=== PATIENT | female | born 1965 | race Caucasian/White ===

== ENCOUNTER 2018-09-02 08:57 | Emergency (ER) | payer BC, SELFPAY ==
[2018-09-02 08:58] VITALS: BP 150/91; PULSE 67; RESP 16; TEMP 36.4; O2SAT 98; BMI 43.1
--- NOTE | 2018-09-02 09:07 | CT_ITS ---
STUDY: CTA OF THE BRAIN REASON FOR EXAM: Female, 52 years old. Dizziness. Syncopal episode. RADIATION DOSAGE (If Supplied By Facility): CTDIvol = ( 27.53 ) mGy, DLP = ( 1548.73 ) mGycm TECHNIQUE: CT angiography was performed with a multi-detector CT scanner. Data acquisition was obtained from the skull base through the vertex following intravenous administration of 100 ml of Isovue-370. MIP images were reconstructed from the axial data set. Post-processing of the angiographic images was performed, with multiplanar reformation and 3D reconstruction. Individualized dose optimization techniques were used for this CT. COMPARISON: None. FINDINGS: Normal bilateral petrous carotid arteries. Normal right cavernous carotid artery with a normal supraclinoid bifurcation. Normal left cavernous carotid artery with a normal supraclinoid bifurcation. Normal right A1 segments of the anterior cerebral artery. Normal left A1 segments of the anterior cerebral artery. Normal intact anterior communicating artery (ACOM). Normal bilateral A2 segments of the anterior cerebral arteries. Normal right M1 and M2 segments of the middle cerebral arteries, with a normal M1 bifurcation. Normal left M1 and M2 segments of the middle cerebral arteries, with a normal M1 bifurcation. Normal right posterior communicating artery (PCOM). Normal left posterior communicating artery (PCOM). Normal bilateral vertebral arteries. Normal basilar artery with a normal basilar bifurcation. The visualized bilateral superior cerebellar (SCA) arteries are normal. Normal bilateral P1, P2 and visualized P3 segments of the posterior cerebral arteries. There is no demonstrated aneurysm of the [place] of [place]. There is no demonstrated abnormality of the visualized brain. CT/CTA Head W/WO Contrast IMPRESSION: Normal [place] without a demonstrated aneurysm or hemodynamically significant stenosis. Electronically Signed: Kenyon Santacruz MD at 10:36 EST Tel [phone], Service support ,
--- NOTE | 2018-09-02 09:07 | CT_ITS ---
STUDY: CT BRAIN WITHOUT CONTRAST REASON FOR EXAM: Female, 52 years old. Dizziness and syncopal episode. RADIATION DOSAGE (If Supplied By Facility): CTDIvol = ( 27.53 ) mGy, DLP = ( 1548.73 ) mGycm TECHNIQUE: Transaxial CT imaging of the brain was performed without administration of intravenous contrast material. Individualized dose optimization techniques were used for this CT. COMPARISON: None. FINDINGS: Normal soft tissue structures. Normal calvarium. Normal size ventricles and extra-axial spaces for the patient's age. Normal white matter tracts of the cerebral hemispheres. Normal basal ganglia and thalami. Normal brainstem. Normal cerebellum. There is no intracranial hemorrhage. There are no findings of an acute ischemic infarction. Mucosal thickening of the right maxillary sinus. CT/Brain/Head without Contrast IMPRESSION: Normal unenhanced CT scan of the brain. Mucosal thickening of the right maxillary sinus. Electronically Signed: Kenyon Santacruz MD at 10:33 EST Tel [phone], Service support ,
--- NOTE | 2018-09-02 09:07 | EKG12_ITS ---
Test Reason : SYNCOPE Blood Pressure : / mmHG Vent. Rate : 065 BPM Atrial Rate : 065 BPM P-R Int : 178 ms QRS Dur : 094 ms QT Int : 410 ms P-R-T Axes : 043 016 052 degrees QTc Int : 426 ms Normal sinus rhythm Normal ECG Confirmed by KIKI GREGORY, RICO ([id number]), marketing editor BOBY SALGADO ([id number] on 09/03/2018 3:32:09 PM Referred By: BEBO Confirmed By:RICO SWANSON MD
--- NOTE | 2018-09-02 09:07 | CT_ITS ---
STUDY: CTA NECK WITH AND WITHOUT CONTRAST REASON FOR EXAM: Female, 52 years old. Dizziness. Syncopal episode. RADIATION DOSAGE (If Supplied By Facility): CTDIvol = ( 27.53 ) mGy, DLP = ( 1548.73 ) mGycm TECHNIQUE: CT angiography with multi-detector data acquisition was performed from the aortic arch to the skull base prior to and after intravenous administration of 100 ml of Isovue 370 contrast. MIP images were reconstructed from the axial data set. Post-processing of the angiographic images was performed, with multiplanar reformation and 3D reconstruction. Individualized dose optimization techniques were used for this CT. COMPARISON: None. FINDINGS: AORTIC ARCH: There is atherosclerotic calcific plaque formation of the aortic arch and great vessels arising from the aortic arch, without a hemodynamically significant stenosis. There is a normal origin of the brachiocephalic, left common carotid, and left subclavian arteries. RIGHT CAROTID ARTERIES: Normal right common carotid artery (CCA). Normal right common carotid bulb. Normal origin of the right internal carotid (ICA) artery without a hemodynamically significant stenosis. Normal visualized cervical portion of the right internal carotid artery. Normal origin of the right external carotid artery (ECA). LEFT CAROTID ARTERIES: Normal left common carotid artery (CCA). Normal left common carotid bulb. There is mild atherosclerotic plaque formation of the origin of the left internal carotid artery with less than 50% cross sectional diameter stenosis. Normal visualized cervical portion of the left internal carotid artery. Normal origin of the left external carotid artery (ECA). VERTEBRAL ARTERIES: Normal bilateral vertebral arteries. CT/CTA Neck W/WO Contrast IMPRESSION: Minimal calcific plaque is seen at the origin of the left internal carotid artery. Electronically Signed: Kenyon Santacruz MD at 10:38 EST Tel [phone], Service support ,
--- NOTE | 2018-09-02 09:12 | ED.DCSUM_ITS ---
- ER Visit Summary Date of Service: 09/02/18 Chief Complaint: Syncope, dizziness and vertigo History of Present Illness: The patient is a 52 F who presents with vertigo. Apparently she had no symptoms this morning, she drove to work, at work she had a syncopal episode, afterwards the vertigo started. She has no vision changes, she has no weakness in her arms or legs. She has no chest pain shortness of breath or neck pain. Symptoms are moderate to severe. Physical Examination: She appears in some distress Moist mucous membranes, no obvious facial deformity. TMs are clear No C-spine tenderness supple neck. Regular rate and rhythm without any obvious murmurs Clear lungs bilaterally speaking in full sentences without any obvious respiratory distress Abdomen soft and nontender no guarding or rebound Moves all extremities without any difficulty or pain. Skin does not show any obvious rashes or lesions, no trauma. Alert oriented ?3 with no gross focal deficit. I did not ambulate her on initial examination due to her distress. Emergency Department Course and Treatment: Unremarkable CT and CT angiogram. This is peripheral vertigo. She may have had a vasovagal syncope, her cardiac enzymes and EKG are also unremarkable. She was given Ativan and Zofran her symptoms are improved. This is likely labyrinthitis I will treat with Valium meclizine and Zofran for home. Disposition: Discharge stable condition Impression: Vertigo This note was generated with [employer] dictation software. It may contain incorrect words, spelling, and punctuation that were not noted in review of the chart prior to signing ED Disposition - Plan for ED Patient: Disposition: Home or Assisted Living Chief Complaint: Syncope Instructions: ED Vertigo Unspecified Prescriptions: Ondansetron [Zofran Odt] 4 mg PO Q8H PRN PRN #10 tab PRN Reason: Nausea Diazepam [Valium] 5 mg PO BID #10 tab Meclizine HCl 25 mg PO TID PRN #25 tab PRN Reason: Vertigo Referrals: Leana Mancini DO [Primary Care Provider] -
--- NOTE | 2018-09-02 09:15 | ED.RN ---
called pharmacy [facility] out of stock to send for pt.
[2018-09-02 09:25] LABS: Absolute Lymphocyte Count 2.53 X10^3/ul (0.83-4.51); Absolute Neutrophil Count 2.7 X10^3/uL (2.0-7.7); Basophil# 0.03 X10^3/uL; Basophil% 0.5 % (0-1); Eosinophil# 0.05 X10^3/uL; Eosinophils% 0.9 % (0-5); Hematocrit 40.2 % (37-47); Hemoglobin 12.8 g/dl (12.0-15.0); Lymphocyte # 2.53 X10^3/ul (4.0); Lymphocyte % 44.2 % (19-41); Mean Corp Hgb Conc 31.8 g/gl (32-36); Mean Corpuscular Hgb 27.7 pg (27.0-32.0); Mean Platelet Vol. 9.9 fl (6.2-12.0); Monocyte# 0.38 X10^3/uL; Monocyte% 6.6 % (0-10); Neutrophil # 2.74 X10^3/uL (2.7-7.7); Neutrophil % 47.8 % (47-70); Platelet Count 234 K/mm3 (150-450); RBC Distribution Width CV 13.3 % (11.6-14.6); RBC Distribution Width SD 42.4 fl (35.1-43.9); Red Blood Count 4.62 M/mm3 (4.2-5.4); White Blood Count 5.7 K/mm3 (4.4-11.0)
[2018-09-02 09:27] LABS: POSITIVE COUNT NO; POSITIVE DIFFERENTIAL NO; POSITIVE MORPHOLOGY NO
[2018-09-02] MEDS: Aspirin 81 MG TAB.CHEW 324 MG PO (09:30)
[2018-09-02] MEDS: Ondansetron 4 MG/2 ML Vial IV (09:30)
--- NOTE | 2018-09-02 09:30 | RAD_ITS ---
STUDY: X-RAY CHEST REASON FOR EXAM: Female, 52 years old. Chest pain. TECHNIQUE: Single AP portable view of the chest. COMPARISON: Comparison is made with prior study dated August 14, 2017. FINDINGS: EKG electrodes are seen. The lungs are clear and expanded. There is no demonstrated pleural abnormality. Normal size heart. Normal mediastinum and clyde. Normal visualized pulmonary arteries. There is atherosclerotic tortuosity of the aortic arch and descending thoracic aorta. There are diffuse degenerative changes of the visualized thoracic spine. Normal visualized ribs, clavicles, and shoulders. There is no demonstrated abnormality of the visualized soft tissue structures of the upper abdomen. RAD/Chest 1 View (Portable) IMPRESSION: No acute abnormality is seen. Electronically Signed: Kenyon Santacruz MD at 10:23 EST Tel [phone], Service support ,
[2018-09-02 09:36] LABS: Anion Gap 7 (5-15); BUN 19 mg/dL (7-18); BUN/Creat Ratio 24.8 RATIO (10-20); Calcium,Total 9.2 mg/dL (8.5-10.1); Chloride 107 mmol/L (98-107); Creatinine, Serum 0.77 mg/dL (0.55-1.02); EST Glomerular Filtration Rate 84 mL/min (>60); Est Glom Filt Rate - Afr Amer 101 mL/min (>60); Estimated Creatinine Clearance 66.83 ml/min; Glucose 116 mg/dL (74-106); Potassium 3.7 mmol/L (3.5-5.1); Sodium Level 139 mmol/L (136-145)
[2018-09-02] MEDS: LORazepam 2 MG/ML Syringe 0.5 MG IV (10:44)
[2018-09-02 11:06] VITALS: BP 141/73; PULSE 68; RESP 15; O2SAT 97
== END 2018-09-02 11:07 | disposition home or self-care (01) ==
PROVIDERS: Emergency Provider Emergency Medicine
DX: R42 Dizziness and giddiness (principal); E11.9 Type 2 diabetes mellitus without complications
CPT/HCPCS: 70450; 70496; 70498; 71045; 80048; 84484; 85025; 93005; 99285; Q9967; A4216; J2405

== ENCOUNTER 2020-03-08 10:43 | Emergency (ER) | payer BC, SELFPAY ==
[2020-03-08 10:45] VITALS: BP 156/78; PULSE 78; RESP 18; TEMP 36.8; O2SAT 98; BMI 42.0
--- NOTE | 2020-03-08 11:39 | ED.VIS.GEN ---
History of Present Illness Chief Complaint: Lower Extremity Injury Informant: Patient Narrative: Patient is a 54-year-old female the past medical history of anxiety/depression, fibromyalgia who presents to the emerge part for bilateral nontraumatic knee pain. This started 1 week ago but has been progressively getting worse. She is been taking Aleve at home for this which has not given her significant relief. She has had this pain before in the past. Ambulating and putting weight on them makes the symptoms worse. No known relieving factors. She has previously followed with pain management. She does have an appointment with them this coming . States that she has not been able to ambulate or go to work because of the pain. She denies any significant swelling. The pain is around her knees bilaterally it goes slightly up into her thighs and slightly down into her calves. No loss of sensation. No abdominal pain or back pain. No overlying skin changes. She denies any systemic symptoms including any fever/chills or nausea/vomiting. No chest pain or shortness of breath. Past Medical History - Allergies and Home Meds Allergies/Adverse Reactions: Allergies atorvastatin calcium [From Lipitor] Allergy (Unknown, Verified 03/08/20 10:49) Unknown Penicillins Allergy (Unknown, Verified 03/08/20 10:49) Hives propoxyphene napsylate [From Darvocet-N 100] Allergy (Unknown, Verified 03/08/20 10:49) Unknown rosuvastatin calcium [From Crestor] Allergy (Unknown, Verified 03/08/20 10:49) Unknown tetracycline Allergy (Unknown, Verified 03/08/20 10:49) Unknown acetaminophen [From Tylenol] Adverse Reaction (Unknown, Verified 03/08/20 10:49) Other Primary Care Physician: Leana Mancini DO [Primary Care Provider] - 2 Days Prior records reviewed: Yes Past Medical History: - - Fibromyalgia, anxiety/depression, osteoarthritis. Surgical History: - - Hysterectomy Smoking Status: Never smoker Alcohol: None Drugs: None - Family History Maternal Family History: Reports: - - Uncle from epilepsy Review of Systems All systems negative except as indicated General: Denies: Chills, Fever, Sweats Eyes: Denies: Visual changes - bilaterally, Diplopia ENT: Denies: Rhinorrhea Cardiovascular: Denies: Chest pain, Palpitations Respiratory: Denies: Dyspnea, Cough, Dyspnea on exertion Gastrointestinal: Denies: Abdominal pain, Nausea, Vomiting Genitourinary: Denies: Dysuria, Hematuria, Frequency Musculoskeletal: Reports: Extremity Pain. Denies: Neck pain, Back pain, Swelling Skin: Denies: Rash, Wounds Neurological: Denies: Headache, Weakness, Numbness Physical Exam Vital Signs/Narrative: Vital Signs Temp Pulse Resp BP Pulse Ox 03/08/20 10:45 98.2 F 78 18 156/78 H 98 Inital Vital Signs reviewed: Yes General: Well nourished, Well developed, No Acute Distress Head: Normocephalic, Atraumatic Eyes: Perrl, EOMI ENT: Moist mucous membranes, No rhinorrhea Neck: Supple, Nontender Cardiovascular: Regular rate, Regular rhythm, No murmurs Respiratory: No distress, CTA bilaterally, Chest nontender Abdomen: Soft, Nontender, Nondistended, Normal bowel sounds Back: Nontender, Normal Inspection Extremities: No edema, Tenderness - Tenderness to even very minimal palpation over her skin around the entire knees bilaterally. 2+ DP pulse. Neurovascular intact. Can move ankles well. Refusing to move knees. No painful anterior compression of hips bilaterally. No swelling of knees. Skin: Normal color, No rash Neurological: Alert, Oriented x3, Cranial nerves II-XII grossly intact, Normal Strength, Normal Sensation Diagnostic/Tx/Re-eval - Medical Decision Making Patient presents to the emerge department for acute on chronic knee pain. She has a history of arthritis and fibromyalgia. She believes that this is a flareup of both. Low concern for septic arthritis given the bilateral nature and no swelling present. She has an appointment pain management this coming . Discussed with her that I cannot write opioid pain medication prescription due to to the chronicity and pain management follow-up. We will give her a shot of Toradol here in the emergency department. Discussed imaging but this is nontraumatic and acute flare we both had a shared decision-making with not doing this at this time. After shot Toradol patient is feeling much better. She was able to ambulate around the emergency department. This time will discharge home in stable condition. She is to keep her pain management appointment in 2 days. She can continue to take her home pain medications. Warning signs and symptoms for which to return to the emerge department were reviewed with her. She understands and is agreeable with this plan. ED Disposition - Plan for ED Patient: Disposition: Home or Assisted Living Diagnosis: Bilateral knee pain Instructions: ED JOINT PAIN Referrals: Leana Mancini DO [Primary Care Provider] - 2 Days
[2020-03-08] MEDS: Ketorolac 30 MG/ML Syringe IM (12:19)
== END 2020-03-08 13:14 | disposition home or self-care (01) ==
PROVIDERS: Emergency Provider Emergency Medicine
DX: M25.561 Pain in right knee (principal); M25.562 Pain in left knee; G89.29 Other chronic pain; M79.7 Fibromyalgia; M19.90 Unspecified osteoarthritis, unspecified site
CPT/HCPCS: 96372; 99284

== ENCOUNTER → 2020-04-22 09:15 | Outpatient (CLI) | payer BC, SELFPAY ==
[2020-04-22 09:57] LABS: Hematocrit 41.7 % (37-47); Hemoglobin 13.3 g/dL (12.0-15.0); Mean Corp Hgb Conc 31.9 g/dL (32-36); Mean Corpuscular Hgb 28.2 pg (27.0-32.0); Mean Corpuscular Volume 88.5 fL (81-99); Mean Platelet Vol. 10.5 fl (6.2-12.0); Platelet Count 249 K/mm3 (150-450); RBC Distribution Width CV 13.4 % (11.6-14.6); RBC Distribution Width SD 43.8 fl (35.1-43.9); Red Blood Count 4.71 M/mm3 (4.2-5.4); White Blood Count 6.3 K/mm3 (4.4-11.0)
[2020-04-22 10:22] LABS: Anion Gap 3 (5-15); BUN 17 mg/dL (7-18); BUN/Creat Ratio 19.7 RATIO (10-20); Calcium,Total 9.2 mg/dL (8.5-10.1); Chloride 108 mmol/L (98-107); Creatinine, Serum 0.86 mg/dL (0.55-1.02); EST Glomerular Filtration Rate 73 mL/min (>60); Est Glom Filt Rate - Afr Amer 88 mL/min (>60); Glucose 110 mg/dL (74-106); Potassium 3.8 mmol/L (3.5-5.1); Sodium Level 142 mmol/L (136-145)
== END ==
LOC: LAB 09:31
PROVIDERS: Referring Provider Orthopaedic Surgery; Visit Provider Orthopaedic Surgery
DX: Z01.818 Encounter for other preprocedural examination (principal); Z01.810 Encounter for preprocedural cardiovascular examination
CPT/HCPCS: 36415; 80048; 85027

== ENCOUNTER → 2020-04-22 09:51 | Outpatient (CLI) | payer BC, SELFPAY | PROVIDERS: Referring Provider Orthopaedic Surgery; Visit Provider Orthopaedic Surgery | DX: Z20.828 Contact with and (suspected) exposure to other viral communicable diseases (principal) | CPT/HCPCS: 87635; 94799; U0003 ==

== ENCOUNTER → 2020-09-20 16:04 | Outpatient (CLI) | payer BC, SELFPAY ==
--- NOTE | 2020-09-20 16:05 | MRI_ITS ---
STUDY: MRI LEFT KNEE REASON FOR EXAM: Medial and subpatellar left knee pain, no specific injury. TECHNIQUE: Standardized fat and water weighted pulse sequences were obtained in all 3 orthogonal planes. COMPARISON: Radiographs 09/06/2020. FINDINGS: There is a complex tear of the posterior horn/body of the medial meniscus (proton-density coronal images 13-17; proton-density sagittal images 9-12) with a very small parameniscal cyst (T2 sagittal image 4). Normal hyaline cartilage of the medial femorotibial compartment. Normal medial femoral condyle and tibial plateau. Normal medial collateral ligamentous complex (MCL). Normal distal semimembranosus, gracilis and semitendinosus tendons. Normal lateral meniscus. Normal hyaline cartilage of the lateral femorotibial compartment. Normal lateral femoral condyle and tibial plateau. Normal proximal tibiofibular articulation. Normal lateral collateral (fibular) ligament. Normal popliteus tendon. Normal biceps femoris tendon. Normal anterior cruciate ligament (ACL). Normal posterior cruciate ligament (PCL). Normal congruent patellofemoral articulation. Normal hyaline cartilage of the patellofemoral compartment. Normal medial and lateral patellar retinaculum. Normal visualized quadriceps tendon. Normal patellar tendon. Normal Hoffa''s fat pad. There is a minimal volume of fluid in the knee joint. There is edema in the anterior subcutis adipose space. The otherwise visualized osseous structures are unremarkable. MRI/Lower Ext Joint Only (Routine) IMPRESSION: Medial meniscal tear. Electronically Signed: Alberto Mahoney MD at 7:21 EST Tel , Service support ,
== END ==
LOC: MRI 16:05
PROVIDERS: Referring Provider Orthopaedic Surgery; Visit Provider Orthopaedic Surgery
DX: M25.562 Pain in left knee (principal)
CPT/HCPCS: 73721

== ENCOUNTER 2020-10-12 05:58 | Day surgery (SDC) | payer BC, SELFPAY ==
[2020-10-12] VITALS (10 sets, daily range): BP systolic 121–146; BP diastolic 62–87; PULSE 65–90; RESP 16–18; TEMP 35.7–36.9; O2SAT 88–100; BMI 44.0
--- NOTE | 2020-10-12 06:00 | HP_ITS ---
I have re-examined the patient. There are no clinical changes since date of exam. Intake Intake Visit Reasons: LEFT KNEE Is patient in pain?: Yes Allergies atorvastatin calcium [From Lipitor] Allergy (Unknown, Verified 10/04/20 08:57) Unknown Penicillins Allergy (Unknown, Verified 10/04/20 08:57) Hives propoxyphene napsylate [From Darvocet-N 100] Allergy (Unknown, Verified 10/04/20 08:57) Unknown rosuvastatin calcium [From Crestor] Allergy (Unknown, Verified 10/04/20 08:57) Unknown tetracycline Allergy (Unknown, Verified 10/04/20 08:57) Unknown acetaminophen [From Tylenol] Adverse Reaction (Unknown, Verified 10/04/20 08:57) Other [facility] Medical History (Updated 09/06/20 @ 12:52 by Beulah Saha) Rheumatoid arthritis (Acute) HTN (hypertension) (Chronic) Surgical History (Updated 09/06/20 @ 12:52 by Beulah Saha) H/O arthroscopy of right knee (Acute) H/O total hysterectomy (Acute) History of loop recorder (Acute) Family History (Updated 09/06/20 @ 12:53 by Beulah Saha) Father Prostate cancer Hypertension Arthritis Depression Mother Depression Hypertension Arthritis Diabetes Social History (Updated 10/04/20 @ 09:[address] Ashleigh Blackwell, ) household members: spouse housing: house Smoking Status: Never smoker alcohol intake: current alcohol intake frequency: holidays/special occasions only what type of physical activity do you participate in: none do you feel safe at home: Yes HPI LEFT KNEE: Surgical H&P: Yes Details: Parts of this documentation were recorded by a scribe, this documentation accurately reflects the service provided and the decisions made by me, Dr. Ashleigh Blackwell DO 10/04/20 0857. JAJA SALGADO is a 54 year old F here today for a followup after her left knee MRI. She states that she continues to have medial knee pain. Patient denies any popping or clicking. She had an injection previously which was helpful for 1 week. She has increased pain with activities. Her MRI is here for review. ROS Tavia Reports joint pain, Denies numbness, Denies tingling Skin/Breast Reports system reviewed and no additional complaints, except as docu Neuro Yes system reviewed and no additional complaints, except as docu, No numbness, No tingling Ortho Exam General General: Yes no acute distress Neurologic: Yes alert, Yes oriented x3 Psychologic: Yes reasonable and appropriate Left Knee Skin/Wound: No ecchymosis, No erythema, No swelling Homans Sign: No Knee ROM: Yes ROM-Extension -20 to 0, No ROM-Flexion 0-140 Examination: Yes med jt line tenderness, No Lat jt line tenderness, Yes Karla's Test Stability: NML: Anterior Drawer, NML: Posterior Drawer, NML: Valgus 30, NML: Varus 30 Patella Grind: No KNEE: no joint effusion Assessment & Plan Problems 1. Acute medial meniscus tear of left knee, initial encounter S83.242A 2. Tear of medial meniscus of left knee, current, unspecified tear type, subsequent encounter S83.242D Plan Personally reviewed patients MRI of the left knee. Patient educate that she has a medial meniscus tear. Treatment options are do nothing or PT or bracing or steroid injection or left knee scope for meniscectomy. She wishes to proceed with left knee scope for medial meniscectomy, surgery as indicated. Reviewed the pre-operative plans with the patient. Risks and benefits of the procedure were fully explained, including but not limited to infection, neurovascular injury, continued pain, arthritis, stiffness, need for further surgery, re-injury, DVT, PE, general risks of anesthesia, and loss of limb or life. The patient understands all the risks and does wish to proceed with written consent. Follow up 2 weeks post op or sooner if pain, swelling, numbness or associated symptoms, or concerns develop. All questions answered. Patient in agreement of plan. Coding Level of Care Code Off vis,est,level 4 Diagnoses Acute medial meniscus tear of left knee, initial encounter S83.242A ??Encounter type: initial encounter Tear of medial meniscus of left knee, current, unspecified tear type, subsequent encounter S83.242D ??Encounter type: subsequent encounter ??Meniscus tear of knee type: unspecified type ??Tear current or old: current COVID (Procedure Consent) Procedure Criteria Procedure Criteria: Yes Elective The surgeon/proceduralist and patient have discussed in detail the risk of exposure to and/or potential harm posed by the COVID-19 virus with having a surgery/procedure at this time versus the risk of? delaying the surgery/procedure. It is not possible to know either the risk of delaying the surgery or procedure or chance of getting an infection with perfect accuracy, but a joint decision was made between the patient and the surgeon/proceduralist ?to proceed at this time with the scheduled surgery/procedure as indicated on the consent form.
[2020-10-12] MEDS: Lactated Ringers 1,000 ML 100 ML IV ×2 (07:02→10:46)
[2020-10-12] MEDS: Cefazolin 2 GM in 0.9% Normal Saline 100 ML IV (07:34)
[2020-10-12] MEDS: Epinephrine (1 mg/ml) 1 MG/ML VIAL (08:00)
[2020-10-12] MEDS: Mupirocin Ointment 22gm Tube 1 APPLIC (08:20)
[2020-10-12] MEDS: Bupiv/Epi 0.25% 30 ML Vial (08:22)
--- NOTE | 2020-10-12 08:29 | PCM.DC.ORTHO ---
Discharge Diet: No Restrictions - Remove dressings postop day 4 and apply Band-Aids to incision sites, may shower and get incision wet postop day 4, weight-bear as tolerated left leg, call with increased pain numbness tingling or further issues arise, call if calf pain or calf swelling, take pain medications Discharge Activity: May Not Drive May shower in (days): 1 Ice area for (Minutes): 20 - Every hour while awake. Weight Bearing Status: Weight bearing as tolerated Keep extremity elevated above heart level: Operative Extremity Call your doctor if your incision/area has: Continuous Slow Oozing, Sudden Increased Bleeding, Increased Pain/ Swelling, Increased Redness, Foul Smelling Discharge Call your doctor if you observe: Fever of 101 or Higher, Coldness, Increased Pain, Numbness or Tingling, Change in Color, Calf discomfort Allergies/Adverse Reactions: Allergies atorvastatin calcium [From Lipitor] Allergy (Unknown, Verified 10/06/20 14:31) Unknown Penicillins Allergy (Unknown, Verified 10/06/20 14:31) Hives propoxyphene napsylate [From Darvocet-N 100] Allergy (Unknown, Verified 10/06/20 14:31) Unknown rosuvastatin calcium [From Crestor] Allergy (Unknown, Verified 10/06/20 14:31) Unknown tetracycline Allergy (Unknown, Verified 10/06/20 14:31) Unknown acetaminophen [From Tylenol] Adverse Reaction (Unknown, Verified 10/06/20 14:31) Other Medications to take at Discharge duloxetine 40 mg capsule,delayed release 40 mg PO BID cap 09/06/20 metoprolol succinate 25 mg tablet,extended release 24 hr 12.5 mg PO QHS tab 09/06/20 Oxycodone HCl/Acetaminophen [Percocet 5/325] 1 - 2 tab PO Q6H PRN PRN 5 Days #28 tab 10/12/20 The following prescriptions were given: Oxycodone HCl/Acetaminophen [Percocet 5/325] 1 - 2 tab PO Q6H PRN PRN 5 Days #28 tab PRN Reason: Pain Transmission Status: Received by [facility]/pharmacy #[id number] Primary Care Physician: Leana Mancini DO [Primary Care Provider] - Test Results: Test results from this visit will be discussed in further detail at your follow-up appointment, if applicable. Please Follow Up With: Ashleigh Blackwell, DO - [phone]
--- NOTE | 2020-10-12 08:30 | OP.PCM_ITS ---
Report of Operation Date of Procedure: 10/12/20 Pre-Operative Diagnosis: left knee ra, med men tear, oa Post-Operative Diagnosis: same Surgery/Procedure Performed:: salk, pmm, patella chondroplasty Type of Anesthesia:: General Anesthesiologist: Gerald Murphy Estimated Blood Loss (mL): min Fluids Replaced: 800cc lr Description of Procedure: Preop note Patient is a 54-year-old female with continued left knee pain and instability. Patient can failed conservative treatment MRI confirms truncated radial tear of the medial meniscus at the mid body to posterior horn. Patient again is failed conservative treatment like to proceed with left knee arthroscopy repair as indicated. Risk benefits and alternatives were discussed with patient. Risk including but not limited to blood loss, blood clot, infection, neurovascular, failure procedure, loss of life and loss of limb. Patient is aware and like proceed with left knee arthroscopy repair as indicated. Operative note We discussed the current risk associated COVID-19. While it is understood that there is a community spread of COVID 19 the risk of anamaria COVID-19 while at [facility] is very low, however, the risk cannot be completely mitigated because of the community spread of the disease. We discussed in detail the risk of exposure to and or potential harm posed by the COVID-19 virus with having a surgery/procedure at this time versus the risk of delaying the surgery/procedure. Is not possible to know either the risk of delaying the surgery procedure or chance of getting an infection with perfect accuracy, but a joint decision was made to proceed at this time with a schedule surgery/procedure as indicated on the consent form. Patient was notified that we will need to comply with any screening or testing [facility] wishes to perform or that surgery may be delayed for any positive results. Patient seen in preop holding area left knee was marked. Patient brought to the operating room placed supine on the operating table. Signed, anesthesia, antibiotics were administered. The left leg was prepped and draped in usual sterile technique with a tourniquet around her upper thigh. All bony promises well-padded SCDs placed on her contralateral limb. We marked out our portal placement for anterior lateral anteromedial portal placement. Left leg was then elevate exsanguinated tourniquet was raised for pressure of 250 torr. Timeout was performed. We created an anterior lateral portal began our diagnostic arthroscopy. She had synovitis in the patellofemoral recent sepsis consistent with her RA. We moved to the medial and lateral joint line there is no loose bodies in the recesses. We then moved to the anteromedial joint line created anteromedial portal was cut starting to create an anterior medial portal under direct visualization. We able to visualize and probed the unstable radial tear of the tear of the medial meniscus. This was resected with combination of a basket and a shaver. We then reinstituted the probe we had a stable meniscus remaining. The ACL and pcl were present within the notch. There was some fibrillated changes in the infra patella and these were debrided back gently with a shaver. The lateral meniscus was intact and stable probing. She had grade 2 changes of the lateral tibial plateau. The lateral femoral condyle lateral and the medial femoral condyle were intact stable probing. The knee was then irrigated copious muscle sterile saline. Portals were closed interrupted 4 nylon stitches sterile dressings were applied tourniquet was deflated. Patient taught procedure well no complications transferred recovery room in stable condition. Postop note Weight-bear as tolerated Pharmacy and [facility] in [place] has prescriptions Call with concerns Follow-up in 2 weeks We will get pictures to patient intubation discussed at that time. Patient asked to not call her until she is ready to go as he is at work [employer] disclaimer this note was generated with [employer] dictation software. It may contain incorrect words, spelling, and punctuation that were not noted in checking the note before signing.
--- NOTE | 2020-10-12 11:26 | SUR.PHASEII ---
Dr. balderrama aware of pt being back on o2 at 2l and so sleepy, no new orders at this time.
== END 2020-10-12 13:09 | disposition home or self-care (01) ==
LOC: SDC 05:58 → AC 05:59
PROVIDERS: Referring Provider Orthopaedic Surgery; Visit Provider Orthopaedic Surgery
PROC: (CPT 29882; principal; 2020-10-12 07:10)
DX: S83.242A Other tear of medial meniscus, current injury, left knee, initial encounter (principal); X58.XXXA Exposure to other specified factors, initial encounter; M17.12 Unilateral primary osteoarthritis, left knee; M06.9 Rheumatoid arthritis, unspecified; I10 Essential (primary) hypertension; Z20.822 Contact with and (suspected) exposure to COVID-19; Z87.891 Personal history of nicotine dependence
CPT/HCPCS: 01400; 29881; 87426; C9803; J7120; J2405

== ENCOUNTER → 2020-10-25 15:10 | Outpatient (CLI) | payer BC, SELFPAY ==
--- NOTE | 2020-10-25 15:12 | VDLE_ITS ---
Reason For Study: Calf pain Procedure LEFT This is a venous duplex using B-mode, color GSV is normal. flow and spectral Doppler. CFV is compressible, spontaneous, phasic, Exam performed in department. competent, and demonstrates normal A preliminary report was called and/or faxed augmentation. to [place]. FV is compressible, spontaneous, phasic, competent and demonstrates normal augmentation. POP V is compressible, spontaneous, phasic, competent and demonstrates normal augmentation. T/P Trunk is compressible. PTV is compressible. LT PerV is compressible. Nonvascularized structure noted in the left popliteal fossa measuring approximenty 0.47 x 1.56 x 2.80 cm. Interpretation Summary There is no evidence of left lower extremity deep vein thrombosis. Left great saphenous vein appears patent and compressible segmentally. Left popliteal fossa 0.47 x 1.56 x 2.8 cm cystic structure consistent with a Manley's cyst. Clinical correlation would be appropriate. Ordering Physician: Ashleigh Blackwell Referring Physician: Leana Mancini Performed By: Rachel Falcon RVT
== END ==
LOC: CVS 15:11
PROVIDERS: Referring Provider Orthopaedic Surgery; Visit Provider Orthopaedic Surgery
DX: M79.662 Pain in left lower leg (principal)
CPT/HCPCS: 93971

== ENCOUNTER 2020-11-30 08:54 | Outpatient (RCR) | payer BC, SELFPAY | END 2021-01-31 23:59 | LOC: IMMUN 08:54 | PROVIDERS: Visit Provider Family Medicine | DX: Z23 Encounter for immunization (principal) | CPT/HCPCS: 0001A; 0002A; 91300 ==

== ENCOUNTER → 2020-12-13 07:05 | Outpatient (CLI) | payer BC, SELFPAY ==
[2020-12-13 07:35] LABS: Color, Urine Yellow (Yellow); Glucose, Dipstick Normal (Normal); Ketone-Dipstick Negative (Negative); Leukocyte Esterase-Dipstick 100 /ul (Negative); Nitrite-Dipstick Negative (Negative); Occult Blood-Urine 10 /ul (Negative); Protein-Dipstick Negative (Negative); Specific Gravity, Urine 1.025 (1.002-1.030); Urine Bilirubin Dipstick Negative (Negative); Urine Clarity Sl. Cloudy (Clear); Urine Urobilinogen Normal (Normal)
[2020-12-13 07:41] LABS: Erythrocyte Sedimentation Rate 18 mm/hr (0-30)
[2020-12-13 07:43] LABS: Absolute Lymphocyte Count 3.19 X10^3/uL (0.83-4.51); Absolute Neutrophil Count 3.1 X10^3/uL (2.0-7.7); Basophil# 0.03 X10^3/uL; Basophil% 0.4 % (0-1); Eosinophil# 0.06 X10^3/uL; Eosinophils% 0.9 % (0-5); Hematocrit 41.7 % (37-47); Hemoglobin 13.4 g/dL (12.0-15.0); Lymphocyte # 3.19 X10^3/ul (0.83-4.51); Lymphocyte % 46.7 % (19-41); Mean Corp Hgb Conc 32.1 g/dL (32-36); Mean Corpuscular Hgb 28.4 pg (27.0-32.0); Mean Corpuscular Volume 88.3 fL (81-99); Mean Platelet Vol. 10.4 fl (6.2-12.0); Monocyte# 0.42 X10^3/uL; Monocyte% 6.1 % (0-10); NRBC Flagged by Analyzer 0 % (0-5); Neutrophil # 3.12 X10^3/uL (2.7-7.7); Neutrophil % 45.8 % (47-70); Platelet Count 270 K/mm3 (150-450); RBC Distribution Width SD 42.1 fl (35.1-43.9); Red Blood Count 4.72 M/mm3 (4.2-5.4); White Blood Count 6.8 K/mm3 (4.4-11.0)
[2020-12-13 08:34] LABS: Vitamin B12 432 pg/mL (211-911); Vitamin D,25 Hydroxy 30.8 ng/mL
[2020-12-13 11:30] LABS: ALB/GLOB Ratio 0.9 RATIO (0.9-2.4); AST(SGOT) 49 U/L (15-37); Alanine Aminotransfer ALT/SGPT 61 U/L (13-56); Albumin, Serum 3.7 g/dL (3.2-5.0); Alkaline Phosphatase 84 U/L (45-117); Anion Gap 6 (5-15); BUN 15 mg/dL (7-18); BUN/Creat Ratio 18.1 RATIO (10-20); CPK Total, Creatine Kinase 94 U/L (26-192); CRP 6.46 mg/L (0.0-3.0); Calcium,Total 9.3 mg/dL (8.5-10.1); Chloride 103 mmol/L (98-107); Cholesterol 199 mg/dL (200); Creatinine, Serum 0.83 mg/dL (0.55-1.02); EST Glomerular Filtration Rate 76 mL/min (>60); Est Glom Filt Rate - Afr Amer 91 mL/min (>60); Glucose 103 mg/dL (74-106); High Density Lipoprotein 60 mg/dL; Potassium 3.7 mmol/L (3.5-5.1); Protein, Total 7.7 g/dL (6.4-8.2); Rheumatoid Factor < 10.0 IU/mL (<15); Sodium Level 139 mmol/L (136-145); Thyroid Stim Hormone (TSH) 4.49 uIU/mL (0.358-3.74); Triglycerides 129 mg/dL; Very Low Density Lipoprotein 26 mg/dL (5-40)
[2020-12-14 20:45] LABS: ANTINUCLEAR ANTIBODIES DIRECT Negative (Negative)
== END ==
PROVIDERS: PCP Family Medicine; Referring Provider Family Medicine; Visit Provider Family Medicine
DX: R73.03 Prediabetes (principal); R53.82 Chronic fatigue, unspecified; M06.9 Rheumatoid arthritis, unspecified; I10 Essential (primary) hypertension; R35.8 Other polyuria; E55.9 Vitamin D deficiency, unspecified
CPT/HCPCS: 80053; 80061; 81002; 82306; 82533; 82550; 82607; 83036; 84439; 84443; 85025; 85652; 86038; 86140; 86200; 86225; 86235; 86431

== ENCOUNTER → 2021-03-07 15:54 | Outpatient (CLI) | payer BC, SELFPAY | PROVIDERS: PCP Family Medicine; Visit Provider Family Medicine | DX: G47.10 Hypersomnia, unspecified (principal); R53.82 Chronic fatigue, unspecified; I10 Essential (primary) hypertension | CPT/HCPCS: 95806 ==

== ENCOUNTER 2021-09-05 12:50 | Outpatient (CLI) | payer BC, SELFPAY ==
--- NOTE | 2021-09-05 13:45 | MRI_ITS ---
STUDY: MR Spine Lumbar W/O Contrast 09/05/2021 2:36 PM REASON FOR EXAM: Female, 55 years old. Back pain CHRONIC LBP, facet arthritis TECHNIQUE: MR Spine Lumbar W/O Contrast Standardized fat and water weighted pulse sequences were obtained. COMPARISON: None FINDINGS: T12-L1: Normal endplates. Normal disc height, hydration and morphology. Normal bilateral facet joints. Normal central canal and bilateral lateral recesses. Normal bilateral intervertebral neural foramina. Normal lumbar lordosis. There is no substantial scoliosis. Normal conus medullaris that terminates at the L1. L1-2: Normal endplates. Normal disc height and morphology. Normal central canal and intervertebral neuroforamina. There is bilateral facet arthropathy. There is bilateral ligamentum flavum thickening. L2-3: Normal endplates. Normal disc height and morphology. Normal central canal and intervertebral neuroforamina. There is bilateral facet arthropathy. There is bilateral ligamentum flavum thickening. L3-4: Normal endplates. Normal disc height and morphology. Normal central canal and intervertebral neuroforamina. There is bilateral facet arthropathy. There is bilateral ligamentum flavum thickening. L4-5: Loss of intervertebral disc height. There is endplate spondylosis of the vertebral body. Normal central canal and intervertebral neuroforamina. There is bilateral facet arthropathy. There is bilateral ligamentum flavum thickening. Left paracentral disc herniation. Mild narrowing of the left lateral recess and compressing the descending left L5 nerve root. No significant spinal stenosis. L5-S1: Normal endplates. Normal disc height and morphology. Normal central canal and intervertebral neuroforamina. There is bilateral facet arthropathy. There is bilateral ligamentum flavum thickening. Normal visualized sacral ala. Normal visualized paraspinous soft tissue structures. MRI/Spine Lumbar (Routine) IMPRESSION: Multilevel degenerative changes, as described above. L4-5: Left paracentral disc herniation. Mild narrowing of the left lateral recess and compressing the descending left L5 nerve root. No significant spinal stenosis. Electronically Signed: Anthony Bhatt MD at 14:39 EST , Service support ,
== END 2021-09-05 23:59 | disposition short-term general hospital (02) ==
PROVIDERS: PCP Family Medicine; Referring Provider Family Medicine; Visit Provider Family Medicine
DX: M47.816 Spondylosis without myelopathy or radiculopathy, lumbar region (principal); M46.96 Unspecified inflammatory spondylopathy, lumbar region; M51.26 Other intervertebral disc displacement, lumbar region; G89.29 Other chronic pain
CPT/HCPCS: 72148

== ENCOUNTER → 2022-09-20 | Outpatient (CLI) | payer BC, SELFPAY ==
[2022-09-20 18:32] LABS: D-Dimer Quantitative (DVT/PE) 1.97 FEU/ug/m (0.27-0.49)
== END | disposition home or self-care (01) ==
LOC: BFHLAB 16:41
PROVIDERS: PCP Family Medicine; Visit Provider Family Medicine
DX: R07.9 Chest pain, unspecified (principal)
CPT/HCPCS: 36415; 85379

== ENCOUNTER → 2022-09-21 | Outpatient (CLI) | payer BC, SELFPAY ==
--- NOTE | 2022-09-21 11:22 | CT_ITS ---
STUDY: CTA CHEST REASON FOR EXAM: Female, 56 years old. CHEST PAIN/BACK PAIN/ELEVATED D DIMER RADIATION DOSAGE (If Supplied By Facility): CTDIvol = ( 13.47 ) mGy, DLP = ( 585.17 ) mGycm TECHNIQUE: The examination was performed with the intravenous administration of IV 100mL Isovue-370. Post-processing of the angiographic images was performed, with multiplanar reformation and 3D reconstruction. Individualized dose optimization techniques were used for this CT. COMPARISON: None. FINDINGS: Normal enhancement of the main pulmonary artery and right and left pulmonary arteries. Normal enhancement of the bilateral peripheral pulmonary arteries. There is no demonstrated pulmonary embolism. There is atherosclerotic calcification of the aortic arch with tortuosity. There is no demonstrated aortic dissection. Normal heart and pericardium. Normal mediastinum. Normal hilar regions. Normal visualized trachea and bronchi. The lungs are well expanded. Normal pulmonary parenchyma. Normal pleura. Normal chest wall structures. There are degenerative changes of thoracic spine. Fatty infiltration of the liver. Small hiatal hernia. CT/CTA Chest W/WO Contrast IMPRESSION: No evidence of point embolism. No acute abnormality is seen. Electronically Signed: Kenyon Santacruz MD at 12:16 [facility] ,
[2022-09-21 11:50] LABS: CREATININE FINGERSTICK 1.1 mg/dL (0.55-1.02)
== END | disposition home or self-care (01) ==
LOC: CT 11:20
PROVIDERS: PCP Family Medicine; Visit Provider Family Medicine
DX: R07.9 Chest pain, unspecified (principal); R79.1 Abnormal coagulation profile
CPT/HCPCS: 71275; Q9967

== ENCOUNTER → 2023-02-28 | Outpatient (CLI) | payer BC, SELFPAY ==
[2023-02-28 12:17] LABS: Erythrocyte Sedimentation Rate 16 mm/hr (0-30)
[2023-02-28 14:43] LABS: CRP 4.52 mg/L (0.0-3.0); Rheumatoid Factor < 10.0 IU/mL (<15); Thyroid Stim Hormone (TSH) 3.36 uIU/mL (0.358-3.74)
[2023-03-01 13:07] LABS: CCP IgG Antibodies 5 units (0-19)
[2023-03-01 14:09] LABS: ANTINUCLEAR ANTIBODIES DIRECT Negative (Negative)
== END | disposition home or self-care (01) ==
LOC: BFHLAB 10:26
PROVIDERS: PCP Family Medicine; Referring Provider Family Medicine; Visit Provider Family Medicine
DX: M13.0 Polyarthritis, unspecified (principal); R53.83 Other fatigue
CPT/HCPCS: 36415; 84443; 85652; 86038; 86140; 86200; 86225; 86235; 86431

== ENCOUNTER → 2023-03-27 | Outpatient (CLI) | payer BC, SELFPAY | END | disposition home or self-care (01) | LOC: OPBI 03-28 08:09 → LABSPEC 03-28 10:48 | PROVIDERS: PCP Family Medicine; Referring Provider Nurse Practitioner Women's Health; Visit Provider Nurse Practitioner Women's Health | DX: N89.8 Other specified noninflammatory disorders of vagina (principal) | CPT/HCPCS: 87070; 87205 ==

== ENCOUNTER → 2023-12-17 | Outpatient (CLI) | payer BC, SELFPAY ==
--- NOTE | 2023-12-17 12:37 | US_ITS ---
PROCEDURE: ULTRASOUND OF THE FEMALE PELVIS - COMPLETE REASON FOR EXAM: Female, 58 years old. Bloating, pelvic discomfort, vaginal prolapse. Hysterectomy 18 years ago TECHNIQUE: Transabdominal and Transvaginal TECHNICAL QUALITY: Adequate. COMPARISON: None. FINDINGS: The uterus is absent compatible with prior hysterectomy. The right ovary is non-visualized. There is no visualized right adnexal mass or complex lesion. The left ovary is non-visualized. There is no visualized left adnexal mass or complex lesion. The bladder is normally fluid distended and unremarkable. There is no fluid in the cul-de-sac. US/Pelvic (Non ) IMPRESSION: 1. Negative ultrasound exam Electronically Signed: Gregorio Maurice MD at 14:24 EDT ,
--- NOTE | 2023-12-17 12:37 | US_ITS ---
PROCEDURE: ULTRASOUND OF THE FEMALE PELVIS - COMPLETE REASON FOR EXAM: Female, 58 years old. Bloating, pelvic discomfort, vaginal prolapse. Hysterectomy 18 years ago TECHNIQUE: Transabdominal and Transvaginal TECHNICAL QUALITY: Adequate. COMPARISON: None. FINDINGS: The uterus is absent compatible with prior hysterectomy. The right ovary is non-visualized. There is no visualized right adnexal mass or complex lesion. The left ovary is non-visualized. There is no visualized left adnexal mass or complex lesion. The bladder is normally fluid distended and unremarkable. There is no fluid in the cul-de-sac. US/Transvaginal Non- IMPRESSION: 1. Negative ultrasound exam Electronically Signed: Gregorio Maurice MD at 14:24 EDT ,
== END | disposition home or self-care (01) ==
PROVIDERS: PCP Family Medicine; Referring Provider Nurse Practitioner Women's Health; Visit Provider Nurse Practitioner Women's Health
DX: R14.0 Abdominal distension (gaseous) (principal)
CPT/HCPCS: 76830; 76856

== ENCOUNTER → 2024-01-10 | Outpatient (CLI) | payer BC, SELFPAY ==
--- NOTE | 2024-01-10 08:29 | BI_ITS ---
MAMMOGRAPHY - BILATERAL SCREENING REASON FOR EXAM: Female, 58 years old. Routine annual screening examination. PERTINENT HISTORY: Aunt with breast cancer. TECHNIQUE: Digital bilateral breast amina (3D mammographic acquisition) in the CC and MLO projections. 2-D mediolateral oblique (MLO) and craniocaudad (CC) views of both breasts were obtained. CAD: Full Field Digital Mammography with Computer Added Detection was performed. COMPARISON: Comparison is made with prior study dated July 16, 2011. FINDINGS: Breast Composition: There are scattered areas of fibroglandular density. There are no dominant masses or suspicious calcifications. Small fat-containing bilateral axillary lymph nodes. No other significant abnormalities are identified. There has been no significant change since the prior study. BI/SCRN MAMM (CAD)W/AMINA BILAT IMPRESSION: Stable bilateral screening mammogram. Yearly follow-up mammogram recommended. (A) ASSESSMENT CATEGORY: BIRADS Category 2: Benign. A letter regarding these results will be sent to the patient by the facility within 30 days. Approximately 10% of breast cancers are not detected by mammography. A normal mammogram should not delay biopsy of a clinically suspicious abnormality. [id number] Electronically Signed: Kenyon Santacruz MD at 9:36 EDT ,
== END | disposition home or self-care (01) ==
LOC: OPBI 08:28
PROVIDERS: PCP Family Medicine; Referring Provider Nurse Practitioner Women's Health; Visit Provider Nurse Practitioner Women's Health
DX: Z12.31 Encounter for screening mammogram for malignant neoplasm of breast (principal)
CPT/HCPCS: 77063; 77067

== ENCOUNTER 2024-02-04 11:38 | Day surgery (SDC) | payer BC, SELFPAY ==
--- NOTE | 2024-02-04 12:16 | H&P.OPEN ---
[facility] - General General Date of Service: 02/04/24 HPI Narrative JAJA BOBO, is a 58 F who presents for screening colonoscopy. Patient never had previous colonoscopy. Patient's dad was diagnosed with colon cancer at age 79. Patient has bowel movements daily denies any blood. Patient denies any chronic abdominal pain/nausea/vomiting/reflux. FORMERLY [facility] Medical History (Updated 01/30/24 @ 09:26 by Kellen Marin) Post-menopausal Wears glasses Depression Anxiety Diabetes Thyroid disease Bladder disease Fatty liver Easy bruising Back pain Migraine headache Blackout Difficulty swallowing History of ulceration Gastric reflux Former smoker CPAP (continuous positive airway pressure) dependence Leg cramps History of pain when walking History of edema History of echocardiogram History of stress test Cardiology follow-up encounter History of irregular heartbeat Rheumatoid arthritis HTN (hypertension) Home Medications ?Medication ?Instructions ?Recorded ?Last Taken ?Type metoprolol succinate 25 mg 25 mg PO QHS 09/06/20 Unknown History tablet,extended release 24 hr bupropion HCl 300 mg 24 hr tablet, 300 mg PO QAM 08/16/21 Unknown History extended release levothyroxine 50 mcg capsule 50 mcg PO DAILY 08/16/21 Unknown History lorazepam 0.5 mg tablet 0.5 mg PO DAILY PRN PRN anxiety 08/16/21 Unknown History tramadol 50 mg tablet 50 mg PO DAILY PRN PRN pain 08/16/21 Unknown History clobetasol 0.05 % topical ointment 1 applic topical DAILY PRN PRN SKIN 01/30/24 Unknown History Allergy/AdvReac Type Severity Reaction Status Date / Time atorvastatin calcium (From Allergy Unknown Unknown Verified 01/30/24 09:13 Lipitor) Penicillins Allergy Unknown Hives Verified 01/30/24 09:13 propoxyphene napsylate (From Allergy Unknown Unknown Verified 01/30/24 09:13 Darvocet-N 100) rosuvastatin calcium (From Allergy Unknown Unknown Verified 01/30/24 09:13 Crestor) tetracycline Allergy Unknown Unknown Verified 01/30/24 09:13 Family History Father Prostate cancer Hypertension Arthritis Depression Mother Depression Hypertension Arthritis Diabetes Surgical History (Updated 01/30/24 @ 09:26 by Kellen Marin) Hx of arthroscopic knee surgery History of loop recorder H/O total hysterectomy H/O arthroscopy of right knee Social History household members: spouse housing: house current occupational status: unemployed Smoking Status: Former smoker alcohol intake: current alcohol intake frequency: holidays/special occasions only substance use type: does not use what type of physical activity do you participate in: none seatbelt use: never do you feel safe at home: Yes additional social history: - Tristen Past Medical/Surgical History Planned Operation Planned Operative Procedure(s): CSCOPE OA S.O.S: No Previous Hospitalizations/Surgeries HX Hospitalizations: No HX of Surgeries: Hysterectomy T&A D&C RIGHT KNEE MENISCUS REPAIR LOOP RECORDER LOOP RECORDER REMOVED Any Problems With Anesthesia: Yes (SLOW TO AWAKEN) You/Your Family Experience Fever (Hyperthermia) With Anes: No Cholinesterase deficiency: No Cardiovascular Hx Chest Pain within Last 2 months: No Hx of Irregular Heartbeat and/or Afib: Yes (IRREG/[employer]ELOPER 2019) Hx Heart Attack: No Hx Congestive Heart Failure: No Hx Rheumatic Fever: No Hx Hypertension: Yes (CONTROLLED WITH MED) Hx Internal Defibrillator: No Hx Pacemaker: No Hx Cardiac Catheterization: Yes (2019) What facility was last heart cath performed: - Date of last Heart Cath: - Hx Cardiac Surgery/Stents/Etc.: Yes (Implantable Loop Recorder) Hx Stress Test: Yes (2019 AND ECHO 2019) Hx Pain in Legs when Walking/Leg Cramps: Yes (LEFT KNEE) Respiratory Chronic Cough: No HX of Shortness of Breath: No Hoarseness: No Hx Chronic Obstructive Pulmonary Disease (COPD): No Hx Asthma: No Hx Emphysema: No Hx Sleep Apnea: Yes CPAP: Yes (NONCOMPLIANT) BIPAP: No Hx Respiratory Tract Infection/Cold (presently): No Result (for STOP score): Positive 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) Smoking Status: Former smoker Gastrointestinal Hx Gastrointestinal Bleed: No Hx Ulcer: Yes (IN THE PAST) Hx Hiatal Hernia: No Difficulty Chewing/Swallowing: No Special diet followed at home: No Hx Unplanned Weight Loss of 20#: No HX Unplanned Weight Gain of 20#: No Neurological Hx Seizures: No HX Syncope/Blackout Spells/Unconsciousness: Yes (SYNCOPE IN THE PAST/PASSED OUT IN THE PAST) Hx Transient Ischemic Attacks (TIA): No Hx Multiple Sclerosis: No Hx Parkinson's Disease: No Hx Head/Neck Injury: No Hx Headaches: Yes (OCC) Hx Back Injury/Pain: Yes (BULGING DISC LOWER BACK) Recent Onset of Speech Difficulty: No Restless Legs: No Does patient have nerve stimulator: No Blood Disorder Hx Leukemia: No Bleeding Tendencies: No Hx Deep Vein Thrombosis: No Hx High Cholesterol: Yes (NO MEDS CURRENTLY) Blood Transmitted Disease: No Hx Hepatitis: No (.) Hx Cirrhosis: No Hx Anemia: No Hx Blood Disorders: No Reproduction : No Is Patient Lactating: No Hx Hysterectomy: Yes Hx Tubal Ligation: No Are You Post Menopause: Yes Genitourinary Hx Renal Disease: No (INCONTINENCE) Hx Dialysis: No Musculoskeletal Hx Arthritis: Yes Hx Rheumatoid Arthritis: Yes (NO MEDS) Hx Gout: No Recent Onset of an Orthopedic Problem: No Endocrine Hx Diabetes: No (PREDIABETIC) Thyroid Disease: No Hx Steroid Therapy: No Psycho/Social Hx Substance Use: No Hx Alcohol Use: Yes (OCC) Hx Anxiety: Yes (ON MED) Hx Depression: Yes (ON MED) Mental Illness: No Hx Dementia: No Miscellaneous Hx Cancer: No Recent Exposure to Contagious Disease: No Hx of C-Diff: No Any Loose Teeth: No Allergies atorvastatin calcium (From Lipitor) Allergy (Unknown, Verified 01/30/24 09:13) Unknown Penicillins Allergy (Unknown, Verified 01/30/24 09:13) Hives propoxyphene napsylate (From Darvocet-N 100) Allergy (Unknown, Verified 01/30/24 09:13) Unknown rosuvastatin calcium (From Crestor) Allergy (Unknown, Verified 01/30/24 09:13) Unknown tetracycline Allergy (Unknown, Verified 01/30/24 09:13) Unknown Maternal: Family History Father Prostate cancer Hypertension Arthritis Depression Mother Depression Hypertension Arthritis Diabetes - (Uncle from epilepsy) Discharge Is Pt Admitted From a Fdc, or a Shelter: No After D/C, Where Do you Plan to Go: Return Home Physical Exam Const alert, oriented x3 and no apparent distress HEENT normocephalic and head/scalp atraumatic Resp normal respiratory effort Cardio regular rate GI soft to palpation and non-tender; Negative for non-distended Palpation: Negative for guarding Extremity no clubbing, cyanosis or edema Skin no rashes or lesions noted Neuro CN's II-XII intact bilaterally Psych mental status grossly normal Assessment & Plan Assessment/Plan (1) Encounter for screening for malignant neoplasm of colon: Surgery Risks - Colonoscopy I discussed with the patient the risks of the procedure: Yes Risks Include but are not Limited To: Risks include but are not limited to: Bleeding, perforation requiring further surgery, inability to complete colonoscopy requiring barium enema.
[2024-02-04 13:06] VITALS: BP 155/77; PULSE 85; RESP 18; TEMP 36.6; O2SAT 98; BMI 42.3
[2024-02-04] MEDS: Lactated Ringers 1,000 ML 15 ML IV (13:10)
--- NOTE | 2024-02-04 13:52 | OP.COLON_ITS ---
Patient Name: Linda Bobo Procedure Date: 02/04/2024 1:24 PM Date of : 1965 Age: 58 Procedure: Colonoscopy Indications: Screening for colorectal malignant neoplasm Providers: Alma Arcos MD Referring MD: Arslan Mccarthy Medicines: Monitored Anesthesia Care Patient Profile: This is a 58 year old female. Last Colonoscopy: none. The patient's first colonoscopy is today. Complications: No immediate complications. Procedure: Pre-Anesthesia Assessment: - Prior to the procedure, a History and Physical was performed, and patient medications and allergies were reviewed. The patient's tolerance of previous anesthesia was also reviewed. The risks and benefits of the procedure and the sedation options and risks were discussed with the patient. All questions were answered, and informed consent was obtained. Prior Anticoagulants: The patient has taken no anticoagulant or antiplatelet agents. ASA Grade Assessment: Per anesthesia. After reviewing the risks and benefits, the patient was deemed in satisfactory condition to undergo the procedure. After I obtained informed consent, the scope was passed under direct vision. Throughout the procedure, the patient's blood pressure, pulse, and oxygen saturations were monitored continuously. The pediatric colonoscope was introduced through the anus and advanced to the cecum, identified by the appendiceal orifice, ileocecal valve and palpation. The colonoscopy was performed without difficulty. The patient tolerated the procedure well. The quality of the bowel preparation was good. Scope In: 1:35:29 PM Scope Withdrawal Time 0 hours 5 minutes 36 seconds Scope Out: 1:48:18 PM Total Procedure Duration Time 0 hours 12 minutes 49 seconds Findings: Hemorrhoids were found on perianal exam. Non-bleeding internal hemorrhoids were found. The hemorrhoids were Grade I (internal hemorrhoids that do not prolapse). The entire examined colon appeared normal. Impression: - Hemorrhoids found on perianal exam. - Non-bleeding internal hemorrhoids. - The entire examined colon is normal. - No specimens collected. Recommendation: - Discharge patient to home. - Resume previous diet. - Continue present medications. - Repeat colonoscopy in 10 years for screening purposes. Procedure Code(s): --- Professional --- G0121, PT, Colorectal cancer screening; colonoscopy on individual not meeting criteria for high risk Diagnosis Code(s): --- Professional --- Z12.11, Encounter for screening for malignant neoplasm of colon K64.0, First degree hemorrhoids CPT copyright 2021 [employer] [employer]. All rights reserved. The codes documented in this report are preliminary and upon human resources intern review may be revised to meet current compliance requirements. MD Alma Mccormick MD 02/04/2024 1:51:53 PM This report has been signed electronically. Number of Addenda: 0 Note Initiated On: 02/04/2024 1:24 PM
--- NOTE | 2024-02-04 13:52 | OP.CCLET_ITS ---
02/04/2024 Arslan Mccarthy [address] [place] [address] Re : Colonoscopy procedure for Linda Bobo Dear Dr. Mccarthy This procedure was performed on Sunday, February 04, 2024. My impressions and recommendations are as follows: Impressions : - Hemorrhoids found on perianal exam. - Non-bleeding internal hemorrhoids. - The entire examined colon is normal. - No specimens collected. Recommendations : - Discharge patient to home. - Resume previous diet. - Continue present medications. - Repeat colonoscopy in 10 years for screening purposes. My findings are described in the full procedure note, which is enclosed. If I can be of further assistance, please feel free to contact me at Doctor phone number(s): , Work: . Sincerely, MD Alma Mccormick MD 02/04/2024 1:51:53 PM This report has been signed electronically.
[2024-02-04 13:55] VITALS: BP 124/67; BP 155/77; PULSE 79; RESP 12; TEMP 36.2; O2SAT 92
[2024-02-04 14:00] VITALS: BP 116/74; BP 155/77; PULSE 74; RESP 14; O2SAT 92
[2024-02-04 14:05] VITALS: BP 130/73; BP 155/77; PULSE 73; RESP 14; O2SAT 93
[2024-02-04 14:10] VITALS: BP 134/71; BP 155/77; PULSE 71; RESP 14; TEMP 36.2; O2SAT 94
[2024-02-04 14:50] VITALS: BP 155/77
== END 2024-02-04 14:42 | disposition home or self-care (01) ==
LOC: EN 11:39 → AC 11:53
PROVIDERS: PCP Family Medicine; Referring Provider Family Medicine; Visit Provider Surgery
PROC: 0DJD8ZZ Inspection of Lower Intestinal Tract, Via Natural or Artificial Opening Endoscopic (ICD-10-PCS; CPT 45378; principal; 2024-02-04 14:10)
DX: Z12.11 Encounter for screening for malignant neoplasm of colon (principal); E11.9 Type 2 diabetes mellitus without complications; E78.00 Pure hypercholesterolemia, unspecified; K64.0 First degree hemorrhoids; Z87.891 Personal history of nicotine dependence; I10 Essential (primary) hypertension; Z80.0 Family history of malignant neoplasm of digestive organs; Z79.899 Other long term (current) drug therapy; F32.A Depression, unspecified; F41.9 Anxiety disorder, unspecified; G47.30 Sleep apnea, unspecified; Z99.89 Dependence on other enabling machines and devices; K64.4 Residual hemorrhoidal skin tags
CPT/HCPCS: 45378; J7120; J2405

== ENCOUNTER → 2024-04-07 | Outpatient (CLI) | payer BC, SELFPAY ==
[2024-04-07 08:23] LABS: Absolute Lymphocyte Count 2.92 X10^3/uL (0.83-4.51); Absolute Neutrophil Count 2.8 X10^3/uL (2.0-7.7); Basophil# 0.04 X10^3/uL; Basophil% 0.6 % (0-1); Eosinophil# 0.09 X10^3/uL; Eosinophils% 1.4 % (0-5); Hematocrit 40.9 % (37-47); Lymphocyte # 2.92 X10^3/ul (0.83-4.51); Lymphocyte % 46.6 % (19-41); Mean Corp Hgb Conc 31.8 g/dL (32-36); Mean Corpuscular Hgb 27.7 pg (27.0-32.0); Mean Corpuscular Volume 87.2 fL (81-99); Mean Platelet Vol. 10.2 fl (6.2-12.0); Monocyte# 0.39 X10^3/uL; Monocyte% 6.2 % (0-10); NRBC Flagged by Analyzer 0 % (0-5); Neutrophil % 44.9 % (47-70); Platelet Count 260 K/mm3 (150-450); RBC Distribution Width CV 13.2 % (11.6-14.6); RBC Distribution Width SD 41.9 fl (35.1-43.9); Red Blood Count 4.69 M/mm3 (4.2-5.4); White Blood Count 6.3 K/mm3 (4.4-11.0)
[2024-04-07 08:55] LABS: Vitamin B12 873 pg/mL (211-911); Vitamin D,25 Hydroxy 39.2 ng/mL
[2024-04-07 08:59] LABS: Hemoglobin A1c 5.8 % (3.8-5.6)
[2024-04-07 12:03] LABS: ALB/GLOB Ratio 0.9 RATIO (0.9-2.4); AST(SGOT) 23 U/L (15-37); Alanine Aminotransfer ALT/SGPT 32 U/L (13-56); Albumin, Serum 3.6 g/dL (3.2-5.0); Alkaline Phosphatase 78 U/L (45-117); Anion Gap 6 (5-15); BUN 15 mg/dL (7-18); Calcium,Total 9.1 mg/dL (8.5-10.1); Chloride 106 mmol/L (98-107); Cholesterol 206 mg/dL (200); Creatinine, Serum 0.79 mg/dL (0.55-1.02); EST Glomerular Filtration Rate 79 mL/min (>60); Est Glom Filt Rate - Afr Amer 96 mL/min (>60); Globulin 3.8 g/dL (2.2-4.2); Glucose 114 mg/dL (74-106); High Density Lipoprotein 57 mg/dL; Potassium 3.7 mmol/L (3.5-5.1); Protein, Total 7.4 g/dL (6.4-8.2); Sodium Level 141 mmol/L (136-145); Triglycerides 159 mg/dL; Uric Acid 5.1 mg/dL (2.6-6.0); Very Low Density Lipoprotein 32 mg/dL (5-40)
== END | disposition home or self-care (01) ==
LOC: LAB 07:57
PROVIDERS: PCP Family Medicine; Referring Provider Nurse Practitioner Family; Visit Provider Nurse Practitioner Family
DX: Z00.01 Encounter for general adult medical examination with abnormal findings (principal); L29.9 Pruritus, unspecified; R73.03 Prediabetes; I10 Essential (primary) hypertension; E78.1 Pure hyperglyceridemia; E55.9 Vitamin D deficiency, unspecified; R79.89 Other specified abnormal findings of blood chemistry; R74.8 Abnormal levels of other serum enzymes
CPT/HCPCS: 36415; 80053; 80061; 82306; 82607; 83036; 84550; 85025

== ENCOUNTER 2024-04-09 05:53 | Day surgery (SDC) | payer BC, SELFPAY ==
[2024-04-09] VITALS (8 sets, daily range): BP systolic 121–145; BP diastolic 64–81; PULSE 60–68; RESP 16; TEMP 36.2–36.5; O2SAT 91–98; BMI 43.3
[2024-04-09] MEDS: Lactated Ringers 1,000 ML 15 ML IV (06:31)
[2024-04-09] MEDS: Ciprofloxacin 400 MG/200 ML BAG 200 MG IV (06:39)
--- NOTE | 2024-04-09 06:49 | PCM.PRE.AN2 ---
ASA Classification* ASA Classification ASA Classification: 3 Assessment & Plan Anesthesia* Anesthesia Assessment Anesthesia Assessment: Discussed sedation and/or anesthesia options, risks, benefits, and alternatives with patient/parents/legal guardian/POA. Questions invited. The patient/parents/legal guardian/POA seems to understand and agrees to proceed with anesthesia plan. Reviewed the physical assessment, medical history, allergy history and patient home medications list prior to surgery/procedure/anesthetic and documented any changes. Performed airway and anesthesia risk assessments. Anesthesia Type Anesthesia Type: MAC (see written pre-anesthesia record for full assessment) Anesthesia Focused Assessment* Temperature: 97.7 F Pulse Rate: 65 Blood Pressure: 145/81 Respiratory Rate: 16 Pulse Ox: 98 Airway Assessment Mouth opens: >3 cm Mallampati Score: II Focused Labs Anesthesia Preop lab: CBC WBC 6.3 K/mm3 (4.4-11.0) 04/07/24 07:59 RBC 4.69 M/mm3 (4.2-5.4) 04/07/24 07:59 Hgb 13.0 g/dL (12.0-15.0) 04/07/24 07:59 Hct 40.9 % (37-47) 04/07/24 07:59 Plt Count 260 K/mm3 (150-450) 04/07/24 07:59 CHEMISTRY Potassium 3.7 mmol/L (3.5-5.1) 04/07/24 07:59 Sodium 141 mmol/L (136-145) 04/07/24 07:59 Magnesium 1.5 mg/dL (1.8-2.4) L 05/11/15 02:16 BUN 15 mg/dL (7-18) 04/07/24 07:59 Creatinine 0.79 mg/dL (0.55-1.02) 04/07/24 07:59 Glucose 114 mg/dL (74-106) H 04/07/24 07:59 TSH 3.36 uIU/mL (0.358-3.74) 02/28/23 10:27 COAG PT 12.9 SECONDS (11.7-14.9) 05/11/15 14:10 Pre-Assessment Diagnosis/Proposed Procedure Planned Operative Procedure(s): Cysto,Urethral Dilatation Anesthesia History Anesthesia History - helicopter dispatcher: Anesthesia History - helicopter dispatcher Hx Hospitalization No 03/30/24 10:16 Any Problems With Anesthesia Yes: SLOW TO AWAKEN 03/30/24 10:16 Cholinesterase deficiency No 03/30/24 10:16 You/Your Family Experience No 03/30/24 10:16 fever (hyperthermia) with Relationship Recent Exposure to Contagious No 04/09/24 06:33 Disease Does patient have nerve No 03/30/24 10:16 stimulator Patient instructed to have device shut off --Does patient have Pacemaker No 04/09/24 06:34 or ICD? When Was Last Pacemaker Check QUESTION #4 FULL TEXT: You/Your Family Experience fever (hyperthermia) with Anesthesia Last Oral Intake Last Oral intake: Last Oral Intake NPO since 00:00 04/09/24 06:34 Meds taken in AM with sips of No 04/09/24 06:34 water? 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 - helicopter dispatcher: PONV - helicopter dispatcher Female Yes 03/30/24 10:16 HX of Motion Sickness Yes 03/30/24 10:16 HX of N/V After Surgery No 03/30/24 10:16 Non-Smoker Yes 03/30/24 10:16 Duration of Surgery greater No 03/30/24 10:16 than 60 minutes Number of Risk Factors 3 03/30/24 10:16 PONV Score Moderate Risk 03/30/24 10:16 Height & Weight Height & Weight: Anesthesia: Height & Weight Height 5 ft 2 in 04/09/24 06:34 Weight: 107.5 kg 04/09/24 06:34 Body Mass Index (BMI) 43.3 04/09/24 06:34 Respiratory Assessment Respiratory Assessment - helicopter dispatcher: Respiratory Tract Infection Hx - helicopter dispatcher Hx Respiratory Tract Infection No 03/30/24 10:16 STOP Sleep Apnea STOP Sleep Apnea - helicopter dispatcher: STOP Sleep Apnea - helicopter dispatcher Hx Hypertension Yes: CONTROLLED WITH MED 03/30/24 10:16 Hx Sleep Apnea Yes: NON-COMPLIANT 03/30/24 10:16 CPAP Yes 03/30/24 10:16 BIPAP No 03/30/24 10:16 Do you snore loudly (louder than talking or can be heard Do you often feel tired/ fatigued/ sleepy during daytime? Has anyone observed you stop breathing during sleep? STOP Results Positive 03/30/24 10:16 QUESTION #5 FULL TEXT : Do you snore loudly (louder than talking or can be heard through closed doors)? Tobacco Use History Tobacco Use History - helicopter dispatcher: Tobacco Use History - helicopter dispatcher Tobacco Use Non-smoker 08/10/21 13:16 Smoking Status Former smoker 03/30/24 10:16 Hx Tobacco Use No 03/30/24 10:16 Years Smoking Packs Smoked per Day Smoking Cessation Date was No - quit smoking greater 03/30/24 10:16 within the last 15 years than 15 years ago Hx Smoking Cessation Date Hx Smoking Cessation No 03/30/24 10:16 Counseling Hematologic Medial History Hematologic Hx - helicopter dispatcher: Hematologic Medical Hx - rn clinical documentation specialist Hx of Blood Transfusion No 03/30/24 10:16 Hx of Transfusion in last 3 No 03/30/24 10:16 Months Date of Last Transfusion (if within last 3 months) Ever experience any problems No 03/30/24 10:16 with transfusion(s)? Specify any problems Hx of Preganancy in last 3 No 03/30/24 10:16 Months Nurse Filling Out Transfusion VCHRISTIN 03/30/24 10:16 & Questions: Date: 03/30/24 03/30/24 10:16 Time: 10:17 03/30/24 10:16 Patient unable to answer at this time (ie. confused, unrespo /Reproduction History /Reproductive History - helicopter dispatcher: /Reproductive Hx- helicopter dispatcher Hx Now Gestational Age (in weeks): EDC: Hx Hx Para Hx Section SAB No 03/30/24 10:16 Active Medications Active Medications: Current Medications Generic Name Dose Route Start Last Admin Trade Name Freq PRN Reason Stop Dose Admin Ciprofloxacin 400 mg in 200 mls @ 200 mls/hr 04/09/24 07:30 04/09/24 06:39 Cipro IV 04/09/24 08:29 200 mls/hr PREOP ONE Administration Lactated Ringer's 1,000 mls @ 15 mls/hr 04/09/24 06:15 04/09/24 06:31 IV 15 mls/hr .Q48H WYATT Administration PFSH Medical History Hx of fall Post-menopausal Wears glasses Depression Anxiety Diabetes Thyroid disease Bladder disease Fatty liver Easy bruising Back pain Migraine headache Blackout Difficulty swallowing History of ulceration Gastric reflux Former smoker CPAP (continuous positive airway pressure) dependence Leg cramps History of pain when walking History of edema History of echocardiogram History of stress test Cardiology follow-up encounter History of irregular heartbeat Rheumatoid arthritis HTN (hypertension) Home Medications ?Medication ?Instructions ?Recorded ?Last Taken ?Type metoprolol succinate 25 mg 25 mg PO DAILY 09/06/20 03/09/24 History tablet,extended release 24 hr levothyroxine 50 mcg capsule 50 mcg PO DAILY 08/16/21 03/09/24 History lorazepam 0.5 mg tablet 0.5 mg PO DAILY PRN PRN anxiety 08/16/21 03/09/24 History tramadol 50 mg tablet 50 mg PO DAILY PRN PRN pain 08/16/21 03/09/24 History clobetasol 0.05 % topical ointment 1 applic topical DAILY PRN PRN SKIN 01/30/24 01/31/24 History cholecalciferol (vitamin D3) 25 25 mcg PO DAILY 03/30/24 04/09/24 History mcg (1,000 unit) capsule (Vitamin D3) cyanocobalamin (vitamin B-12) 1,000 mcg PO QDAY 03/30/24 03/09/24 History 1,000 mcg tablet (Vitamin B-12) Allergy/AdvReac Type Severity Reaction Status Date / Time atorvastatin calcium (From Allergy Unknown Unknown Verified 03/30/24 10:09 Lipitor) Penicillins Allergy Unknown Hives Verified 03/30/24 10:09 propoxyphene napsylate (From Allergy Unknown Unknown Verified 03/30/24 10:09 Darvocet-N 100) rosuvastatin calcium (From Allergy Unknown Unknown Verified 03/30/24 10:09 Crestor) tetracycline Allergy Unknown Unknown Verified 03/30/24 10:09 Family History Father Prostate cancer Hypertension Arthritis Depression Mother Depression Hypertension Arthritis Diabetes Surgical History Hx of colonoscopy Hx of arthroscopic knee surgery History of loop recorder H/O total hysterectomy H/O arthroscopy of right knee Social History household members: spouse housing: house current occupational status: unemployed Smoking Status: Former smoker alcohol intake: current alcohol intake frequency: holidays/special occasions only substance use type: does not use what type of physical activity do you participate in: none seatbelt use: never do you feel safe at home: Yes additional social history: - Tristen Review of Systems (Anesthesia) ROS Narrative System reviewed and no additional complaints, except as documented.
--- NOTE | 2024-04-09 08:02 | PCM.POST.ANE ---
Anesthesia: Postop Eval I Current Vital Signs Temperature: 97.1 F Pulse Rate: 66 Blood Pressure: 121/64 Respiratory Rate: 16 Pulse Ox: 96 Oxygen Delivery Method: Room Air Assessment Airway patent: Yes Spontaneous unlabored respirations: Yes Mental status: Awake and Calm nausea: No Vomiting: No Anesthesia Complication: No Fluid Hydration Crystalloid volume administer (ml): 500 Total IV fluid infused: 500 Progress Note Anesthesia document: Postop Eval 1 completed: Yes
--- NOTE | 2024-04-09 08:03 | POSTOPAN2_ITS ---
Anesthesia Postop Eval I Sum Postop Eval Completion status Anesthesia document: Postop Eval 1 completed: Yes Anesthesia Postop Eval I Summary Anesthesia Postop Eval I Summary: Anesthesia Postop Eval I: Assessment Summary Airway patent Yes 04/09/24 08:03 BAR AND FILLER ASSEMBLER.[email or web address] Spontaneous unlabored Yes 04/09/24 08:03 BAR AND FILLER ASSEMBLER.OT respirations Mental status Awake,Calm 04/09/24 08:03 BAR AND FILLER ASSEMBLER.MDOT nausea No 04/09/24 08:03 BAR AND FILLER ASSEMBLER.MDOT Vomiting No 04/09/24 08:03 BAR AND FILLER ASSEMBLER.MDOT Anesthesia Postop Eval I: Fluid Summary Crystalloid volume administer 500 04/09/24 08:03 BAR AND FILLER ASSEMBLER.MDOT (ml) Colloids volume administered ( ml) Blood Product volume administered (ml) Total IV fluid infused 500 04/09/24 08:03 BAR AND FILLER ASSEMBLER.[email or web address] Anesthesia Postop Eval I: Summary Notes Anesthesia Complication No 04/09/24 08:03 BAR AND FILLER ASSEMBLER.OT Anesthesia Complication Comment: Post-operative progress note Anesthesia: Postop Eval II Evaluation Mental status: Awake and Calm Pain Level: 0 nausea: No Vomiting: No Complications Anesthesia Complication: No
--- NOTE | 2024-04-09 08:03 | PCM.POSTANE2 ---
Anesthesia Postop Eval I Sum Postop Eval Completion status Anesthesia document: Postop Eval 1 completed: Yes Anesthesia Postop Eval I Summary Anesthesia Postop Eval I Summary: Anesthesia Postop Eval I: Assessment Summary Airway patent Yes 04/09/24 08:03 SALMON GILLNET VESSEL OPERATOR.[email or web address] Spontaneous unlabored Yes 04/09/24 08:03 SALMON GILLNET VESSEL OPERATOR.OT respirations Mental status Awake,Calm 04/09/24 08:03 SALMON GILLNET VESSEL OPERATOR.MDOT nausea No 04/09/24 08:03 SALMON GILL[employer] VESSEL OPERATOR.MDOT Vomiting No 04/09/24 08:03 SALMON GILLNET VESSEL OPERATOR.MDOT Anesthesia Postop Eval I: Fluid Summary Crystalloid volume administer 500 04/09/24 08:03 SALMON GILLNET VESSEL OPERATOR.MDOT (ml) Colloids volume administered ( ml) Blood Product volume administered (ml) Total IV fluid infused 500 04/09/24 08:03 SALMON GILLNET VESSEL OPERATOR.[email or web address] Anesthesia Postop Eval I: Summary Notes Anesthesia Complication No 04/09/24 08:03 SALMON GILLNET VESSEL OPERATOR.OT Anesthesia Complication Comment: Post-operative progress note Anesthesia: Postop Eval II Evaluation Mental status: Awake and Calm Pain Level: 0 nausea: No Vomiting: No Complications Anesthesia Complication: No
--- NOTE | 2024-04-09 08:04 | POSTOPAN2_ITS ---
Anesthesia Postop Eval I Sum Postop Eval Completion status Anesthesia document: Postop Eval 1 completed: Yes Anesthesia Postop Eval I Summary Anesthesia Postop Eval I Summary: Anesthesia Postop Eval I: Assessment Summary Airway patent Yes 04/09/24 08:03 NURSE PRIVATE [email or web address].[email or web address] Spontaneous unlabored Yes 04/09/24 08:03 NURSE PRIVATE DUTY.[email or web address] respirations Mental status Awake,Calm 04/09/24 08:03 NURSE PRIVATE DUTY.MDOT nausea No 04/09/24 08:03 NURSE PRIVATE DUTY.OT Vomiting No 04/09/24 08:03 NURSE PRIVATE DUTY.[email or web address] Anesthesia Postop Eval I: Fluid Summary Crystalloid volume administer 500 04/09/24 08:03 NURSE PRIVATE DUTY.MDOT (ml) Colloids volume administered ( ml) Blood Product volume administered (ml) Total IV fluid infused 500 04/09/24 08:03 NURSE PRIVATE DUTY.[email or web address] Anesthesia Postop Eval I: Summary Notes Anesthesia Complication No 04/09/24 08:03 NURSE PRIVATE DUTY.[email or web address] Anesthesia Complication Comment: Post-operative progress note Anesthesia: Postop Eval II Evaluation Mental status: Awake Pain Level: 0 nausea: No Vomiting: No
--- NOTE | 2024-04-09 08:04 | PCM.POSTANE2 ---
Anesthesia Postop Eval I Sum Postop Eval Completion status Anesthesia document: Postop Eval 1 completed: Yes Anesthesia Postop Eval I Summary Anesthesia Postop Eval I Summary: Anesthesia Postop Eval I: Assessment Summary Airway patent Yes 04/09/24 08:03 LAP [email or web address] Spontaneous unlabored Yes 04/09/24 08:03 LAP CUTTER.[email or web address] respirations Mental status Awake,Calm 04/09/24 08:03 LAP CUTTER.MDOT nausea No 04/09/24 08:03 LAP CUTTER.OT Vomiting No 04/09/24 08:03 LAP CUTTER.[email or web address] Anesthesia Postop Eval I: Fluid Summary Crystalloid volume administer 500 04/09/24 08:03 LAP CUTTER.MDOT (ml) Colloids volume administered ( ml) Blood Product volume administered (ml) Total IV fluid infused 500 04/09/24 08:03 LAP CUTTER.[email or web address] Anesthesia Postop Eval I: Summary Notes Anesthesia Complication No 04/09/24 08:03 LAP CUTTER.[email or web address] Anesthesia Complication Comment: Post-operative progress note Anesthesia: Postop Eval II Evaluation Mental status: Awake Pain Level: 0 nausea: No Vomiting: No
--- NOTE | 2024-04-09 08:04 | EX.PCM.DISCH ---
Discharge Instructions Diet Discharge Diet: No restrictions Activity Discharge Activity: Return to Normal Activity Dressing / Incision Call your doctor if you observe: Fever of 101 or Higher, Inability to urinate and Inability to have a bowel movement Follow Up Care Please Follow Up With: Jaci Reyes MD When: The office will call her to make arrangements for follow-up. Test Results: Test results from this visit will be discussed in further detail at your follow-up appointment, if applicable. Discharge Plan Admission Attending Provider: Jaci Reyes Primary Care Provider: Arslan Mccarthy Instructions Print Language: Korean Discharge Orders/Prescriptions Prescriptions: New oxycodone-acetaminophen [Percocet] 5-325 mg tablet 1 tab PO Q8H PRN (Reason: pain) 1 Days Qty: 3 0RF nitrofurantoin monohyd/m-cryst [Macrobid] 100 mg capsule 100 mg PO BID Qty: 4 0RF Rx Instructions: must administer with a meal/food Continued metoprolol succinate 25 mg tablet extended release 24 hr 25 mg PO DAILY levothyroxine 50 mcg capsule 50 mcg PO DAILY tramadol 50 mg tablet 50 mg PO DAILY PRN PRN (Reason: pain) lorazepam 0.5 mg tablet 0.5 mg PO DAILY PRN PRN (Reason: anxiety) cholecalciferol (vitamin D3) [Vitamin D3] 25 mcg (1,000 unit) capsule 25 mcg PO DAILY cyanocobalamin (vitamin B-12) [Vitamin B-12] 1,000 mcg tablet 1,000 mcg PO QDAY clobetasol 0.05 % ointment 1 applic topical DAILY PRN PRN (Reason: SKIN) Rx Instructions: 1 applic topical apply bid X 2 weeks, daily X 2 weeks then prn. Small amount and massge in; Referrals / Follow Up: Arslan Mccarthy DO [Primary Care Provider] - Disposition Disposition (needs filled in before D/C Order can be placed): Home, Self Care
--- NOTE | 2024-04-09 08:08 | PCM.OPRPT ---
Report of Operation Date of Procedure: 04/09/24 Pre-Operative Diagnosis: Female urethral stricture, urinary incontinence Post-Operative Diagnosis: Same Surgery/Procedure Performed:: Urethral dilation, cystourethroscopy Surgeon: Jaci Reyes Type of Anesthesia: MAC Specimen's removed: None Description of Procedure: The patient is a 58-year-old female in which we are working up for incontinence who was unable to undergo an office cystoscopy secondary to urethral stricture. She now presents for urethral dilation and cystoscopy. Informed consent was obtained. The patient was taken to the operating room and placed on the operating room table. Anesthesia monitored the head, neck, airway, IV access and vital signs throughout the case. Once anesthesia was appropriately administered, she was placed into dorsolithotomy position was prepped and draped in usual sterile fashion. Pelvic examination revealed significant lichen sclerosis flareup in the area of the posterior perineum. She has a significant grade 3 rectocele and a grade 1 cystocele. The urethra was dilated starting with [address] [place] the way to 26 [place]. There was cracking of the urethral mucosa. The cystoscope then passed easily through the urethra into the urinary bladder revealing no evidence of mass, erythema, ulceration or foreign body. The area of the trigone revealed normal positioning of the ureteral orifices. Her bladder was then emptied and the cystoscope was removed. She was awakened and taken to the recovery room in good condition. There were no complications during this procedure. Grafts/Implants Used: None Complications None Admit VTE Documentation VTE Present on Admission: Yes VTE Mechan Device Prophylaxis: SCD's VTE Pharm Prophylaxis ordered?: No
[2024-04-09] MEDS: Lidocaine Jelly 2% 20 ML Syringe (URO-JET) 1 APPLIC TOPICAL (08:51)
== END 2024-04-09 09:09 | disposition home or self-care (01) ==
LOC: SDC 05:56 → AC 05:57
PROVIDERS: PCP Family Medicine; Referring Provider Urology; Visit Provider Urology
PROC: 0T7D8ZZ Dilation of Urethra, Via Natural or Artificial Opening Endoscopic (ICD-10-PCS; CPT 52281; principal; 2024-04-09 07:20)
DX: N35.92 Unspecified urethral stricture, female (principal); N81.10 Cystocele, unspecified; N81.6 Rectocele; N32.81 Overactive bladder; N39.46 Mixed incontinence; N95.2 Postmenopausal atrophic vaginitis; L90.0 Lichen sclerosus et atrophicus; I10 Essential (primary) hypertension; F32.A Depression, unspecified; F41.9 Anxiety disorder, unspecified; Z79.899 Other long term (current) drug therapy; Z87.891 Personal history of nicotine dependence
CPT/HCPCS: 52281; 00910; J7120; J0744

== ENCOUNTER 2024-06-03 13:00 | Outpatient (CLI) | payer BC, SELFPAY | END 2024-06-03 23:00 | disposition home or self-care (01) | LOC: SDC 10-28 22:04 | PROVIDERS: PCP Family Medicine; Referring Provider Urology; Visit Provider Urology | DX: Z01.818 Encounter for other preprocedural examination (principal) | CPT/HCPCS: J2405 ==

== ENCOUNTER 2024-07-07 08:00 | Outpatient (RCR) | payer BC, SELFPAY ==
--- NOTE | 2024-06-30 10:26 | HP.PTEVAL ---
Patient's Visit Information Visit Information Visit Information: JAJA SALGADO is a 58 year old F referred to Physical Therapy by Dr. Jaci Adame MD with a diagnosis of URGE INCONTINENCE. Date of Evaluation: 06/30/24 Physical Therapist: Alicia Tran PT, Cert MDT Visit Plan Frequency: 1x/Week Duration: 2-4 Months Plan: PF THERAPY FOR STRENGTHENING, LENGTHENING/RELAXATION AND ENDURANCE TRAINING. URINARY URGE AND FREQUENCY EDUCATION. HEALTHY BLADDER HABIT EDUCATION. TRAINING IN COORDINATION OF PELVIC FLOOR MUSCULATURE WITH HIP AND CORE (TRANSVERSE ABDOMINUS) MUSCULATURE. CORE STRENGTHENING. ANDRZEJ LE ROM, STRETCHING AND STRENGTHENING. TRAINING IN ABDOMINAL CAVITY PRESSURE MGMT WITH ADL'S. POSTURE TRAINING. HEALTHY BACK EDUCATION. Subjective Subjective: Work/Leisure: UNEMPLOYEED X 3-4 YEARS Disability: YES - SINCE SEP 2023 FOR BACK AND DEPRESSION Present symptoms: URINARY INCONTINENCE. PATIENT STATES SHE IS LEAKING PEE A LOT. PATIENT ALSO REPORTS FREQUENT URINATION - 13 TO 14 TIMES A DAY SOMETIMES AND GETTING UP 3-4 TIMES A DAY. STATES SHE HAS TO WEAR PADS ALL THE TIME. Present since: A YEAR OR SO Pain Scale: N/A. PATIENT STATES SHE IS NOT HERE FOR PAIN. Is it getting better, worse or staying the same: WORSE Commenced as a result of: NO APPARENT REASON FOR WORSENING ABOUT A YEAR AGO BUT PATIENT REPORTS SHE HAS WORN A PAD DUE TO HAVING SOME UI/LEAKING FOR ABOUT 18 YEARS SINCE HAVING HYSTERECTOMY. Worse: UNKNOWN Better: NOTHING Disturbed sleep: GETTING UP 3-4 TIMES AT NIGHT TO URINATE Previous history/Previous treatment: HYSTERECTOMY 18 YEARS AGO Treatment this episode: PATIENT REPORTS SHE HAS TRIED 3 OR [address] ADAME FOR UI WITHOUT BENEFIT SO CURRENTLY NOT TAKING ANY. Coughing/sneezing/straining: POSITIVE FOR UI Gait: INDEP BUT RARELY USES AN AD DUE TO BACK CONDITION. USED A WALKER ABOUT 3 MONTHS AGO DUE TO BACK. STATES SHE REALLY DOESN'T DO MUCH AND USUALLY STAYS HOME, GROCERY SHOPS AND GOES TO MEDICAL LEATHA'TS. How long can you delay the need to urinate: ZERO TO A FEW MINUTES Prolapse (Falling out feeling): YES Frequency of Urination: 13 TO 14 TIMES A DAY Ability to stop urine flow: NO Ability to initiate urine stream: YES Dyspareunia: YES Bowel Incontinence: SOMETIMES Accidents: NO Unexplained weight loss: NO Imaging: NO RECENT IMAGING OF BACK OR PELVIC AREA THAT PATIENT CAN RECALL. PATIENT REPORTS LAST ULTRASOUND SHOWED SHE IS EMPTY HER BLADDER NORMALLY. PMH/Recent major surgery: Patient reports that she does not have any cancer that she is aware of. Cystocele and Rectocele Urinary Incontinence HNP L4L5 left - Patient denies back surgery or pending surgery. Stricture of 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 Lichen sclerosus Hx of fall Post-menopausal Wears glasses Depression Anxiety Diabetes Thyroid disease Bladder disease Fatty liver Easy bruising Back pain Migraine headache Blackout Difficulty swallowing History of ulceration Gastric reflux Former smoker CPAP (continuous positive airway pressure) dependence Leg cramps History of pain when walking History of edema History of irregular heartbeat Rheumatoid arthritis HTN (hypertension) History of cystoscopy Hx of colonoscopy Hx of arthroscopic knee surgery History of loop recorder H/O total hysterectomy H/O arthroscopy of right knee Objective Objective: Sitting/Standing Posture: SLOUCHED IN SITTING. ANTERIOR PELVIC TILT IN STANDING. Active Correction of posture: NE ON BACK PAIN. ABLE TO PARTIALLY CORRECT. DOES NOT MAINTAIN. Other Observations: INDEP GAIT INTO PT WITHOUT AD. INDEP TRANSFERS SIT TO STAND WITHOUT UE ASSIST. Sensory deficit: HYPERSENSATIVITY WITH LIGHT TOUCH SENSATION TESTING OF R THIGH COMPARED TO L. OTHERWISE ANDRZEJ LE LIGHT TOUCH SENSATION GROSSLY INTACT AND SYMMETRICAL. ROM deficit: ANDRZEJ HIP FLEXOR, HS AND CALF TIGHTNESS R>L. ANDRZEJ HIP ADD AND HIP ROTATOR TIGHTNESS ALSO. Motor deficit: LE STRENGTH TESTING PAIN LIMITED. ANDRZEJ HIPS, KNEES AND ANKLES GROSSLY 3+ TO 4-/5. PATIENT C/O INCREASED BACK PAIN WITH ATTEMPS OF LE MMT'ING. DUE TO BACK PAIN BEING EASILY AGGRAVATED INTERNAL MANUAL PELVIC FLOOR TESTING NOT PERFORMED TODAY. PATIENT COMMUNICATES A GOOD UNDERSTANDING OF HOW TO CONTRACT HER PELVIC FLOOR AND REPORTS SHE DOES IT ALL THE TIME. SHE REPORTS SHE WAS TAUGHT HOW TO DO IT AT SOME POINT AND KEPT DOING IT BECAUSE SHE THOUGHT SHE WAS SUPPOSED TO. Reflexes: ANDRZEJ QUADS 2+, ANDRZEJ ACHILLES 2+ Dural Signs: NEGATIVE ANDRZEJ LE'S. Lumbar mvmt loss: flex - MIN ext - MOD R SG - MOD L SG - QUAN PATIENT REPORTS IF SHE GOES ANY FURTHER WITH BACK ROM IT CAUSES INCREASED PAIN. SHE REPORTS HER BACK HURTS ALL THE TIME AND GETS WORSE WITH BENDING, LIFTING, STANDING AND LYING ON HER BACK. Core strength: POOR FUNCTIONAL SCREEN: Incontinence Impact Questionnaire Score: 17 Urogenital Distress Inventory Score: 19 Goals Goal 1:: DECREASE URINARY LEAKAGE EPISODES TO ONE OR LESS PER DAY Goal Time Frame: 8-12 Weeks Goal 2:: PATIENT WILL SUCCESSFULLY DELAY VOIDING LONG NEEDED WHEN URGENCY OCCURS TO SUCCESSFULLY MAKE IT TO THE BATHROOM. Goal Time Frame: 4-6 Weeks Goal 3:: PATIENT WILL DEMONSTRATE/COMMUNICATE 10 CONSISTENT AND CONSECUTIVE 10 SECOND PELVIC FLOOR MUSCLE CONTRACTIONS TO DEMONSTRATE IMPROVED PELVIC FLOOR ENDURANCE. Goal Time Frame: 8-12 Weeks Goal 4:: DEVELOP HEALTHY FLUID INTAKE HABITS WITH FLUID INTAKE OF ? BODY WEIGHT IN OUNCES PER DAY AND 2/3 BEING WATER. Goal Time Frame: 4-6 Weeks Goal 5:: NORMALIZE VOIDING FREQUENCEY TO EVERY 3-4 HOURS. Goal Time Frame: 6-8 Weeks Goal 6:: PATIENT WILL BE INDEP WITH A HEP/HOME INSTRUCTIONS FOR CONTINUED IMPROVEMENT ONCE FORMAL PHYSICAL THERAPY CONCLUDES. Goal Time Frame: 8-12 Weeks Rehabilitation Potential Physical Therapy Diagnosis: THIS PATIENT PRESENTS TO PT FOR SYMPTOMS OF URINARY URGENCY AND INCREASED FREQUENCY ALONG WITH STRESS AND URGE INCONTINENCE. SHE ALSO HAS CORE AND HIP WEAKNESS AND STIFFNESS AND DECREASED AWARENESS OF HEALTHY BLADDER AND BACK HABITS. Rehabilitation Potential: Good Anticipated Interventions Patient/Client Instruction: Educate patient on: Condition, Plan of Care and Risk Factors For the Purpose of:: To improve self management Therapeutic Exercise to Include: Strength training, Endurance training, Body mechanics, Postural training, Flexibilty training, Neuromotor development and Relaxation training For the Purpose of:: To improve muscle performance and motor function, To improve ability of physical actions for home/community/work/leisure, To increase flexibility/ROM and To improve endurance Text: Thank you for the opportunity to evaluate your patient. For Medicare and Medicare HMO plans, please review the plan of care and approve it. It will need to be FAXED BACK to us at [phone] for Medicare purposes. For Medicare only, by signing this I certify the plan of care. Please let me know if there are questions or concerns regarding this plan of care. Physician Signature: Date:
--- NOTE | 2024-11-22 20:14 | HP.PT.NRP ---
Patient Information Patient Information: FILI SALGADO was seen in my office for initial evaluation on 06/30/24. The following Plan of Care was established for this patient: POC Established Initial Frequency: 1x/Week Initial Duration: 2-4 Months Anticipated Interventions Patient/Client Instruction: Educate patient on: Condition, Plan of Care and Risk Factors For the Purpose of:: To improve self management Therapeutic Exercise to Include: Strength training, Endurance training, Body mechanics, Postural training, Flexibilty training, Neuromotor development and Relaxation training For the Purpose of:: To improve muscle performance and motor function, To improve ability of physical actions for home/community/work/leisure, To increase flexibility/ROM and To improve endurance Last Seen Last Seen: This patient was last seen in our office 07/07/25. Pertinent comments regarding their Physical therapy will appear below: It has been my pleasure to see this patient for a total of 2 visits. This patient has not returned to Physical Therapy for more visits and is appropriate to return to MD for further follow-up as needed. At this point I will be discontinuing this patient from physical therapy. I would be happy to see this patient again in the future if found appropriate by the physician. Thank you! Alicia Tran, PT, Cert MDT
== END 2024-07-07 19:00 | disposition home or self-care (01) ==
LOC: PT 08:00
PROVIDERS: PCP Family Medicine; Referring Provider Urology; Visit Provider Urology
DX: N39.41 Urge incontinence (principal)
CPT/HCPCS: 97162; 97530

== ENCOUNTER 2024-07-13 17:27 | Emergency (ER) | payer BC, SELFPAY ==
[2024-07-13 17:27] VITALS: BP 150/85; PULSE 67; RESP 18; TEMP 36.6; O2SAT 94; BMI 44.6
--- NOTE | 2024-07-13 18:12 | EKG12_ITS ---
Test Reason : STROKE Blood Pressure : */* mmHG Vent. Rate : 68 BPM Atrial Rate : 68 BPM P-R Int : 158 ms QRS Dur : 112 ms QT Int : 422 ms P-R-T Axes : 44 19 58 degrees QTcB Int : 448 ms Normal sinus rhythm Normal ECG Confirmed by STEPHAN GREGORY, ROBBIE ([id number]), photographic editor ROWDY UP ([id number]) on 07/14/2024 1:52:52 PM Referred By: Confirmed By: ROBBIE ROTHMAN MD
--- NOTE | 2024-07-13 18:12 | CT_ITS ---
We are attempting to reach an attending provider to discuss findings. An addendum with communication details will be sent when the communication is complete. EXAM: CT HEAD WITHOUT INTRAVENOUS CONTRAST CLINICAL INDICATION: Neuro deficit, acute, stroke suspected TECHNIQUE: Multiple axial images were obtained of the head without intravenous contrast. This CT exam was performed using one or more of the following dose reduction techniques: automated exposure control, adjustment of the mA and/or kV according to patient size, and/or use of iterative reconstruction technique. COMPARISON: 09/02/2018 FINDINGS: BRAIN AND EXTRA-AXIAL SPACES: Unremarkable. No intra- or extra-axial hemorrhage. No evidence of acute infarct. No intracranial mass or mass effect. There is preservation of the damon/white matter interface. Posterior fossa structures are unremarkable. Ventricles are appropriate for age. No hydrocephalus. Basal cisterns are patent. BONES/JOINTS: Unremarkable. No discrete lytic or blastic abnormalities. SINUSES: Unremarkable as visualized. Clear. MASTOID AIR CELLS: Unremarkable. Clear. ORBITS: Visualized globes, extraocular muscles, optic nerves and retrobulbar fat appear unremarkable. CT/STROKE Brain/Head without Cont IMPRESSION: 1. No acute intracranial abnormality. 2. ASPECTS score 10. Electronically Signed: Des Recinos MD at 18:33 EST ,
--- NOTE | 2024-07-13 18:20 | CT_ITS ---
We are attempting to reach an attending provider to discuss findings. An addendum with communication details will be sent when the communication is complete. EXAM: CT ANGIOGRAPHY HEAD AND NECK WITH INTRAVENOUS CONTRAST CLINICAL INDICATION: Neuro deficit, acute, stroke suspected TECHNIQUE: [place]/head and neck CT angiography protocol performed with intravenous contrast. This CT exam was performed using one or more of the following dose reduction techniques: automated exposure control, adjustment of the mA and/or kV according to patient size, and/or use of iterative reconstruction technique. MIP reconstructed images were created and reviewed. CONTRAST: IV 100mL [id number] COMPARISON: No relevant prior studies available. FINDINGS: HEAD: RIGHT ANTERIOR CEREBRAL ARTERY: Unremarkable. No occlusion or significant stenosis. Anterior communicating artery is present. No aneurysm. RIGHT MIDDLE CEREBRAL ARTERY: Unremarkable. No occlusion or significant stenosis. No aneurysm. RIGHT POSTERIOR CEREBRAL ARTERY: Unremarkable. No occlusion or significant stenosis. No aneurysm. RIGHT INTRACRANIAL INTERNAL CAROTID ARTERY: Unremarkable. No significant stenosis. No dissection or occlusion. RIGHT INTRACRANIAL VERTEBRAL ARTERY: Unremarkable. No significant stenosis. No dissection or occlusion. LEFT ANTERIOR CEREBRAL ARTERY: Unremarkable. No occlusion or significant stenosis. No aneurysm. LEFT MIDDLE CEREBRAL ARTERY: Unremarkable. No occlusion or significant stenosis. No aneurysm. LEFT POSTERIOR CEREBRAL ARTERY: Unremarkable. No occlusion or significant stenosis. No aneurysm. LEFT INTRACRANIAL INTERNAL CAROTID ARTERY: Unremarkable. No significant stenosis. No dissection or occlusion. LEFT INTRACRANIAL VERTEBRAL ARTERY: Unremarkable. No significant stenosis. No dissection or occlusion. BASILAR ARTERY: Unremarkable. No occlusion or significant stenosis. No aneurysm. OTHER VASCULATURE: No vascular malformation. NECK: RIGHT COMMON CAROTID ARTERY: Unremarkable. No significant stenosis. No dissection or occlusion. RIGHT EXTRACRANIAL INTERNAL CAROTID ARTERY: Unremarkable. No significant stenosis. No dissection or occlusion. RIGHT EXTERNAL CAROTID ARTERY: Unremarkable. No occlusion. RIGHT EXTRACRANIAL VERTEBRAL ARTERY: Unremarkable. No significant stenosis. No dissection or occlusion. LEFT COMMON CAROTID ARTERY: Unremarkable. No significant stenosis. No dissection or occlusion. LEFT EXTRACRANIAL INTERNAL CAROTID ARTERY: Unremarkable. No significant stenosis. No dissection or occlusion. LEFT EXTERNAL CAROTID ARTERY: Unremarkable. No occlusion. LEFT EXTRACRANIAL VERTEBRAL ARTERY: Unremarkable. No significant stenosis. No dissection or occlusion. BRACHIOCEPHALIC AND SUBCLAVIAN ARTERIES: Unremarkable as visualized. No occlusion or significant stenosis. LUNG APICES: Unremarkable as visualized. HEAD and NECK: BONES/JOINTS: Unremarkable. No discrete lytic or blastic abnormalities. SOFT TISSUES: Unremarkable. CAROTID STENOSIS REFERENCE USING NASCET CRITERIA: % ICA stenosis = (1 - narrowest ICA diameter/diameter of distal cervical ICA) x 100. Mild - <50% stenosis. Moderate - 50-69% stenosis. Severe - 70-94% stenosis. Near occlusion - 95-99% stenosis. Occluded - 100% stenosis. CT/STROKE CTA Head AND Neck W/Con IMPRESSION: Negative CTA carotid and CTA brain. Electronically Signed: Des Recinos MD at 18:40 EST ,
--- NOTE | 2024-07-13 18:23 | CM.ED ---
Social Work Reason for visit: Stroke alert This SW met with patients outside of patient room, introduced self and role at [facility]. stated was at an appointment and began to feel dizzy, and since this has happened numerous times before he knew to bring her in. was calm, did not have any other questions or concerns. No further needs identified. Eli Avila, WELL LOGGING CAPTAIN OUTSIDE REPAIRER SPECIAL
[2024-07-13 18:30] VITALS: BP 168/85; PULSE 65; RESP 16; O2SAT 97
[2024-07-13 18:31] LABS: Absolute Lymphocyte Count 2.72 X10^3/uL (0.83-4.51); Absolute Neutrophil Count 3.5 X10^3/uL (2.0-7.7); Basophil# 0.02 X10^3/uL; Basophil% 0.3 % (0-1); Eosinophil# 0.06 X10^3/uL; Eosinophils% 0.9 % (0-5); Hematocrit 39.3 % (37-47); Hemoglobin 12.7 g/dL (12.0-15.0); Lymphocyte # 2.72 X10^3/ul (0.83-4.51); Mean Corp Hgb Conc 32.3 g/dL (32-36); Mean Corpuscular Hgb 28.3 pg (27.0-32.0); Mean Corpuscular Volume 87.7 fL (81-99); Mean Platelet Vol. 10.3 fl (6.2-12.0); Monocyte# 0.67 X10^3/uL; Monocyte% 9.6 % (0-10); NRBC Flagged by Analyzer 0 % (0-5); Neutrophil # 3.48 X10^3/uL (2.7-7.7); Neutrophil % 49.9 % (47-70); Platelet Count 236 K/mm3 (150-450); RBC Distribution Width CV 14.1 % (11.6-14.6); RBC Distribution Width SD 45.5 fl (35.1-43.9); Red Blood Count 4.48 M/mm3 (4.2-5.4)
--- NOTE | 2024-07-13 18:32 | EDS_ITS ---
<Statement entered by Familia Meehan DO - 07/13/24 21:59> Patient was seen and examined with physician certified surgical first assistant Destiny All components of the history and physical confirmed and agreed. History of present illness and physical exam: Patient is a 58-year-old female past medical history of anxiety, depression, migraine headache, dizziness, rheumatoid arthritis, hypertension who presents to the emergency department with a chief complaint of dizziness and difficulty with ambulating. States that she saw her urologist here at [facility] this afternoon and noted that after the appointment she was getting into the elevator and felt her symptoms coming on. She states that she was unable to ambulate after her symptoms started therefore they called EMS to have her brought here for further evaluation management. States that she has had multiple of these episodes in the past and her significant other at bedside agrees with this. She states that if she opens her eyes this exacerbates her dizziness. Patient denies any blood thinning medication denies any falls. Patient states that she does have a mild headache. Patient states that she has never seen a neurologist for this in the past and has not seen an ears nose and throat doctor either. Patient denies any history of strokes. Review of systems: Constitutional: Complains of dizziness as noted above denies any fevers, chills, lightheadedness Eyes: Denies any double vision Cardiovascular: Denies chest pain palpitations Respiratory: Denies coughing wheezing shortness of breath Abdomen: Denies any abdominal pain nausea vomit diarrhea : Denies any urinary symptoms Neurological: Complains of difficulty walking as noted above with his dizziness Musculoskeletal: Denies back pain Skin: Denies any rashes or lesions Physical exam General: Patient was lying in bed rest comfortably did not appear to be in acute distress Head: Atraumatic, normocephalic Eyes: PERRL bilateral, EOMI bilateral, no conjunctival injection noted Neck: Soft, supple, trachea midline Cardiovascular: Regular rate and rhythm no murmurs gallops rubs noted Respiratory: Clear to auscultation bilaterally no rales rhonchi or wheeze noted Abdomen: Soft, nondistended, nontender to palpation, bowel sounds present in 4 Extremities: +5/5 strength noted in the bilateral upper and lower extremities, no pedal edema no exam Neurological: Patient is following commands knew that she was at [facility] years 2023. NIH of 0 GCS 15. Patient completed [id number] test bilaterally without difficulty Skin: Warm, dry, intact MDM Patient is a 58-year-old female who presented to the emergency department the chief complaint of dizziness and inability to ambulate after the onset of dizziness. Patient will have a workup performed here on the differential diagnose includes but limited to intracranial hemorrhage, posterior circulation stroke, hypoglycemia, electrolyte abnormality. Once workup is obtained reviewed she will be reevaluated. Patient was made a stroke alert here in the emergency department as her last known well was 4:30 PM. I do have low suspicion for this however given her dizziness and inability to ambulate went forward with the stroke alert to ensure that she is not a large vessel occlusion or intracranial hemorrhage. Patient's CBC was reviewed and showed no evidence of leukocytosis white blood cell count normal at 7, hemoglobin stable 12.7, platelet count normal at 236. Patient's sodium normal at 141, potassium normal 3.5, creatinine normal at 0.83. Patient's glucose normal at 102, troponin was normal at 6. Patient's chest x- ray reviewed by myself and by radiology which showed no acute cardiopulmonary processes. Patient CT head and brain showed no acute intracranial abnormality and CTA of the head and neck showed no evidence of large vessel occlusion. Patient's EKG reviewed and independently interpreted by myself which showed sinus rhythm with a rate of 60 bpm. Patient was evaluated by the neurology team on telemetry neurology and they feel that this examination is consistent with vertigo and they were not concerned for stroke. They felt that she could potentially be admitted for vertigo if needed given her difficulty with ambulating. However according to nurse once the patient was told that this was not a stroke her symptoms improved and she was sitting up in bed resting comfortably with her eyes open without any further symptoms. She was given meclizine and states that she feels completely back to her baseline. Patient did ambulate without any ataxia or difficulty here in the emergency department. She was offered admission for her vertigo and further workup however she states that she does not want to be admitted she wants to go home at this point time. She was advised to follow-up with ears nose and throat. She was given prescription for meclizine. She was advised to return with worsening symptoms or any concerns. She was discharged home in stable condition with all question concerns answered her significant other is agreeable this plan. Final impression: Vertigo Disposition: Patient will be discharged home in stable condition Supervising attending attestation: Familia TOMLINSON History of Present Illness Chief Complaint: Stroke Alert Narrative Narrative: Patient presenting today due to acute onset dizziness that she describes as a room spinning sensation that started while she was leaving her urologist appointment here at [facility] this afternoon. She did come straight down to the ED. She reports that she has had dizziness in the past, but it is usually not this severe. She reports that she is scared to open her eyes because she is so dizzy. She reports that in the past when she would have dizziness she would go to sleep and when she wakes up it is usually gone. Has seen a neurologist in the past for this. She has never seen an ENT doctor regarding her dizziness. She denies any history of stroke. [facility] Medical History Stricture of 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 Hx of fall Post-menopausal Wears glasses Depression Anxiety Diabetes Thyroid disease Bladder disease Fatty liver Easy bruising Back pain Migraine headache Blackout Difficulty swallowing History of ulceration Gastric reflux Former smoker CPAP (continuous positive airway pressure) dependence Leg cramps History of pain when walking History of edema History of echocardiogram History of stress test Cardiology follow-up encounter History of irregular heartbeat Rheumatoid arthritis HTN (hypertension) Home Medications ?Medication ?Instructions ?Recorded ?Last Taken ?Type metoprolol succinate 25 mg 25 mg PO DAILY 09/06/20 03/09/24 History tablet,extended release 24 hr levothyroxine 50 mcg capsule 50 mcg PO DAILY 08/16/21 03/09/24 History lorazepam 0.5 mg tablet 0.5 mg PO DAILY PRN PRN anxiety 08/16/21 03/09/24 History tramadol 50 mg tablet 50 mg PO DAILY PRN PRN pain 08/16/21 03/09/24 History clobetasol 0.05 % topical ointment 1 applic topical DAILY PRN PRN SKIN 01/30/24 01/31/24 History cholecalciferol (vitamin D3) 25 25 mcg PO DAILY 03/30/24 04/09/24 History mcg (1,000 unit) capsule (Vitamin D3) cyanocobalamin (vitamin B-12) 1,000 mcg PO QDAY 03/30/24 03/09/24 History 1,000 mcg tablet (Vitamin B-12) bupropion HCl 150 mg 24 hr tablet, 150 mg PO DAILY 06/03/24 Unknown History extended release famotidine 20 mg tablet 20 mg PO QHS 07/13/24 Unknown History fluoxetine 40 mg capsule 40 mg PO DAILY 07/13/24 Unknown History hydroxyzine HCl 25 mg tablet 25 - 50 mg PO Q6H PRN PRN itch 07/13/24 Unknown History levothyroxine 50 mcg tablet 50 mcg PO 07/13/24 Unknown History meclizine 25 mg tablet 25 mg PO 4X/DAY PRN PRN Dizziness 07/13/24 Unknown Rx #20 tabs mirabegron 50 mg tablet,extended 50 mg PO DAILY 07/13/24 Unknown History release 24 hr nystatin 100,000 unit/gram topical topical BID 07/13/24 Unknown History ointment Allergy/AdvReac Type Severity Reaction Status Date / Time atorvastatin calcium (From Allergy Unknown Unknown Verified 07/13/24 17:33 Lipitor) Penicillins Allergy Unknown Hives Verified 07/13/24 17:33 propoxyphene napsylate (From Allergy Unknown Unknown Verified 07/13/24 17:33 Darvocet-N 100) rosuvastatin calcium (From Allergy Unknown Unknown Verified 07/13/24 17:33 Crestor) tetracycline Allergy Unknown Unknown Verified 07/13/24 17:33 Family History Father Prostate cancer Hypertension Arthritis Depression Mother Depression Hypertension Arthritis Diabetes Surgical History History of cystoscopy Hx of colonoscopy Hx of arthroscopic knee surgery History of loop recorder H/O total hysterectomy H/O arthroscopy of right knee Social History household members: spouse housing: house current occupational status: unemployed Smoking Status: Former smoker alcohol intake: current alcohol intake frequency: holidays/special occasions only substance use type: does not use what type of physical activity do you participate in: none seatbelt use: never do you feel safe at home: Yes additional social history: - [facility] [place] ED Constitutional Constitutional ED: Denies chills or fever(s) Cardiovascular Cardiovascular: Denies chest pain Respiratory/Chest Respiratory/Chest: Denies dyspnea Gastrointestinal Gastrointestinal: Denies abdominal pain, nausea or vomiting Musculoskeletal Musculoskeletal: Denies arthralgias or myalgias Integumentary Denies rash Neurologic Neurologic: Reports dizziness; Denies headache(s) or paresthesias EXAM Physical Exam Const Vital Signs: 07/13/24 17:27 07/13/24 17:33 07/13/24 18:18 Temperature 97.8 F Temperature Source Oral Pulse Rate 67 Respiratory Rate 18 Respiratory Effort Normal Non-Labored Respiratory Pattern Normal Blood Pressure 150/85 H Blood Pressure Mean 106 Pulse Ox 94 Oxygen Delivery Method Room Air Room Air 07/13/24 18:30 07/13/24 19:27 07/13/24 20:21 Temperature 98.1 F Temperature Source Pulse Rate 65 63 63 Respiratory Rate 16 12 15 Respiratory Effort Respiratory Pattern Blood Pressure 168/85 H 154/81 H 157/68 H Blood Pressure Mean 112 105 97 Pulse Ox 97 91 98 Oxygen Delivery Method Room Air Room Air Positive well nourished, well developed and no apparent distress General Appearance ED: well developed HEENT Reports normocephalic and head/scalp atraumatic Mouth ED: Yes moist mucous membranes normal Eyes PERRL and EOMs intact bilaterally Neck full ROM and supple Chest Wall inspection of chest normal Resp normal respiratory effort and clear to auscultation bilaterally Cardio regular rate and regular rhythm GI soft to palpation, non-tender, non-distended and no masses Back/Spine normal ROM and normal to inspection Extremity normal to inspection and full ROM Neuro oriented x3, CN's II-XII intact bilaterally, moves all extremities, no focal motor deficits and no sensory deficits noted Neuro Narrative: Negative test of skew, no truncal ataxia, NIH 0 Sensorium / Orientation: awake and alert Coordination / Balance: [id number] test normal and nbic-jv-[id number] test normal Motor Exam: strength 5/5 throughout Psych mental status grossly normal and thought process normal Skin no rashes or lesions noted and no wounds MDM MDM MDM Narrative Medical decision making narrative: Patient presenting today due to dizziness that started this afternoon while she was leaving her urologist appointment. She has had dizziness in the past but she said it has never been this severe. On exam, she has her eyes closed and reports that she is scared to ambulate because she is so dizzy, stroke alert was called given her presentation. CBC, BMP, troponin are unremarkable. Head CT/CTA negative for any acute findings. She does have an NIH of 0, she has a negative test of skew, no truncal ataxia. Teleneurology was consulted and felt that her examination was consistent with vertigo. They were not concerned for stroke. They thought that she could be admitted for her vertigo if needed given patient had concerns for ambulating. However, according to the nurse once patient was told that this was not a stroke, her symptoms did improve and she is now sitting in the bed comfortably with her eyes open. She was given meclizine and on repeat exam reports resolution of her symptoms. She is able to ambulate without ataxia or difficulty. I did offer admission but she would rather follow-up as an outpatient for this. She has seen neurology in the past, I recommended that she follow back up with them and I have also given her an ENT referral. I did give her a prescription for meclizine. She will be discharged home in stable condition. Lab Data Attestation: I reviewed the patient's lab results. Labs: Laboratory Results - last 24 hr 07/13/24 18:16 WBC 7.0 RBC 4.48 Hgb 12.7 Hct 39.3 MCV 87.7 MCH 28.3 MCHC 32.3 RDW Std Deviation 45.5 H RDW Coeff of Oanh 14.1 Plt Count 236 MPV 10.3 Immature Gran % (Auto) 0.300 Neut % (Auto) 49.9 Lymph % (Auto) 39.0 Woodruff % (Auto) 9.6 Eos % (Auto) 0.9 Baso % (Auto) 0.3 Absolute Neuts (auto) 3.5 Absolute Lymphs (auto) 2.72 Nucleated RBC % 0 PT 12.2 INR 0.9 APTT 24.0 L Sodium 141 Potassium 3.5 Chloride 106 Carbon Dioxide 30.0 Anion Gap 5 BUN 16 Creatinine 0.83 Estim Creat Clear Calc 86.29 Est GFR (MDRD) Af Amer 90 Est GFR (MDRD) Non-Af 74 BUN/Creatinine Ratio 19.2 Glucose 102 Calcium 9.4 Troponin I High Sens 6 Radiography X-Ray: Read by ED Physician Diagnostic Testing: Clinical Impression(s) from Imaging Studies Brain CT 07/13/24 18:12 IMPRESSION: 1. No acute intracranial abnormality. 2. ASPECTS score 10. Electronically Signed: Des Recinos MD at 18:33 EST , ADDENDUM: 07/13/24 1841 IMPRESSION: 1. No acute intracranial abnormality. 2. ASPECTS score 10. N.B. : The above Results were Read Back by Des Recinos MD to Familia Meehan DO, and understanding confirmed on 07/13/2024 18:34:32 (ET). Electronically Signed: Des Recinos MD at 18:33 EST , Head/Neck CTA 07/13/24 18:20 IMPRESSION: Negative CTA carotid and CTA brain. Electronically Signed: Des Recinos MD at 18:40 EST , ADDENDUM: 07/13/24 1851 IMPRESSION: Negative CTA carotid and CTA brain. N.B. : The above Results were Read Back by Des Recinos MD to Familia Meehan DO, and understanding confirmed on 07/13/2024 18:44:31 (ET). Electronically Signed: Des Recinos MD at 18:40 EST , Chest X-Ray 07/13/24 18:50 IMPRESSION: No radiographic evidence of acute cardiopulmonary disease. Electronically Signed: Des Recinos MD at 19:52 EST , EKG Initial EKG: Comments: 60 bpm, normal sinus rhythm, no ST elevation, interpreted by attending ED physician Discharge Plan Triage Chief Complaint: Stroke Alert Other Complaint: Syncope ED Midlevel Provider: Parisa Tristan ED Provider: Familia Meehan Dx/Rx/DC Orders Clinical Impression: Vertigo Instructions: ED Vertigo, Unspecified Prescriptions: New meclizine 25 mg tablet 25 mg PO 4X/DAY PRN PRN (Reason: Dizziness) Qty: 20 0RF No Action metoprolol succinate 25 mg tablet extended release 24 hr 25 mg PO DAILY levothyroxine 50 mcg capsule 50 mcg PO DAILY tramadol 50 mg tablet 50 mg PO DAILY PRN PRN (Reason: pain) lorazepam 0.5 mg tablet 0.5 mg PO DAILY PRN PRN (Reason: anxiety) cholecalciferol (vitamin D3) [Vitamin D3] 25 mcg (1,000 unit) capsule 25 mcg PO DAILY cyanocobalamin (vitamin B-12) [Vitamin B-12] 1,000 mcg tablet 1,000 mcg PO QDAY bupropion HCl 150 mg tablet extended release 24 hr 150 mg PO DAILY clobetasol 0.05 % ointment 1 applic topical DAILY PRN PRN (Reason: SKIN) Rx Instructions: 1 applic topical apply bid X 2 weeks, daily X 2 weeks then prn. Small amount and massge in; fluoxetine 40 mg capsule 40 mg PO DAILY nystatin 100,000 unit/gram ointment topical BID famotidine 20 mg tablet 20 mg PO QHS levothyroxine 50 mcg tablet 50 mcg PO hydroxyzine HCl 25 mg tablet 25 - 50 mg PO Q6H PRN PRN (Reason: itch) mirabegron 50 mg tablet extended release 24 hr 50 mg PO DAILY Primary Care Provider: Arslan Mccarthy Referrals: Patricio Monteiro MD [Med Staff - Active Staff] - 1 Week Arslan Mccarthy DO [Primary Care Provider] - Activity Restrictions/Additional Instructions: Follow-up with your neurologist and ENT. Return for any worsening of your symptoms. Print Language: Slovenian Disposition Disposition: Home, Self Care Discharge Date/Time: 07/13/24 20:34
[2024-07-13 18:35] VITALS: BMI 45.1
[2024-07-13 18:40] LABS: Anion Gap 5 (5-15); BUN 16 mg/dL (7-18); BUN/Creat Ratio 19.2 RATIO (10-20); Calcium,Total 9.4 mg/dL (8.5-10.1); Chloride 106 mmol/L (98-107); Creatinine, Serum 0.83 mg/dL (0.55-1.02); EST Glomerular Filtration Rate 74 mL/min (>60); Est Glom Filt Rate - Afr Amer 90 mL/min (>60); Estimated Creatinine Clearance 86.29 ml/min; Glucose 102 mg/dL (74-106); Potassium 3.5 mmol/L (3.5-5.1); Sodium Level 141 mmol/L (136-145); Troponin-I HS 6 pg/mL (3.0-54.0)
[2024-07-13 18:42] LABS: International Normalized Ratio 0.9; Prothrombin Time (Protime)PT. 12.2 SECONDS (11.7-14.9)
--- NOTE | 2024-07-13 18:50 | RAD_ITS ---
EXAM: XR CHEST, 1 VIEW CLINICAL INDICATION: Neuro deficit, acute, stroke suspected TECHNIQUE: Frontal view of the chest. COMPARISON: 09/02/2018 FINDINGS: LUNGS AND PLEURAL SPACES: Unremarkable. No consolidation or edema. No pneumothorax. No effusion. HEART: Unremarkable. Cardiac silhouette not enlarged. MEDIASTINUM: Central airways and mediastinal contour are unremarkable. BONES/JOINTS: Unremarkable. No acute fracture. SOFT TISSUES: Unremarkable. RAD/Chest 1 View IMPRESSION: No radiographic evidence of acute cardiopulmonary disease. Electronically Signed: Des Recinos MD at 19:52 EST ,
[2024-07-13 19:27] VITALS: BP 154/81; PULSE 63; RESP 12; O2SAT 91
[2024-07-13] MEDS: Meclizine HCl 25 MG Tablet PO (19:43)
[2024-07-13 20:21] VITALS: BP 157/68; PULSE 63; RESP 15; TEMP 36.7; O2SAT 98
== END 2024-07-13 20:34 | disposition home or self-care (01) ==
PROVIDERS: Emergency Provider Emergency Medicine; PCP Family Medicine; Visit Provider Emergency Medicine
DX: R42 Dizziness and giddiness (principal); I10 Essential (primary) hypertension; Z79.899 Other long term (current) drug therapy; Z87.891 Personal history of nicotine dependence
CPT/HCPCS: 70450; 70496; 70498; 71045; 80048; 84484; 85025; 85610; 85730; 93005; 99285; Q9967; A4216

== ENCOUNTER 2024-07-30 06:43 | Day surgery (SDC) | payer BC, SELFPAY ==
[2024-07-30] VITALS (10 sets, daily range): BP systolic 86–145; BP diastolic 46–69; PULSE 63–74; RESP 16–18; TEMP 36.4–36.8; O2SAT 93–98; BMI 44.1
[2024-07-30] MEDS: Vancomycin IV 1,000 MG/200 ML BAG 200 MG IV (07:13)
--- NOTE | 2024-07-30 07:40 | PRE.ANES_ITS ---
ASA Classification* ASA Classification ASA Classification: 3 Assessment & Plan Anesthesia* Anesthesia Assessment Anesthesia Assessment: Discussed sedation and/or anesthesia options, risks, benefits, and alternatives with patient/parents/legal guardian/POA. Questions invited. The patient/parents/legal guardian/POA seems to understand and agrees to proceed with anesthesia plan. Reviewed the physical assessment, medical history, allergy history and patient home medications list prior to surgery/procedure/anesthetic and documented any changes. Performed airway and anesthesia risk assessments. Anesthesia Type Anesthesia Type: MAC Anesthesia Focused Assessment* Temperature: 97.9 F Pulse Rate: 65 Blood Pressure: 145/69 Respiratory Rate: 16 Pulse Ox: 98 Airway Assessment Mouth opens: >3 cm Mallampati Score: II Focused Labs Anesthesia Preop lab: CBC WBC 7.0 K/mm3 (4.4-11.0) 07/13/24 18:16 RBC 4.48 M/mm3 (4.2-5.4) 07/13/24 18:16 Hgb 12.7 g/dL (12.0-15.0) 07/13/24 18:16 Hct 39.3 % (37-47) 07/13/24 18:16 Plt Count 236 K/mm3 (150-450) 07/13/24 18:16 CHEMISTRY Potassium 3.5 mmol/L (3.5-5.1) 07/13/24 18:16 Sodium 141 mmol/L (136-145) 07/13/24 18:16 Magnesium 1.5 mg/dL (1.8-2.4) L 05/11/15 02:16 BUN 16 mg/dL (7-18) 07/13/24 18:16 Creatinine 0.83 mg/dL (0.55-1.02) 07/13/24 18:16 Glucose 102 mg/dL (74-106) 07/13/24 18:16 TSH 3.36 uIU/mL (0.358-3.74) 02/28/23 10:27 COAG PT 12.2 SECONDS (11.7-14.9) 07/13/24 18:16 Pre-Assessment Diagnosis/Proposed Procedure Planned Operative Procedure(s): AXONICS STAGE 1 Anesthesia History Anesthesia History - solutions executive security: Anesthesia History - solutions executive security Hx Hospitalization No 07/17/24 13:58 Any Problems With Anesthesia Yes: SLOW TO AWAKEN 07/17/24 13:58 Cholinesterase deficiency No 07/17/24 13:58 You/Your Family Experience No 07/17/24 13:58 fever (hyperthermia) with Relationship Recent Exposure to Contagious No 07/30/24 07:09 Disease Does patient have nerve No 07/17/24 13:58 stimulator Patient instructed to have device shut off --Does patient have Pacemaker No 07/30/24 07:09 or ICD? When Was Last Pacemaker Check QUESTION #4 FULL TEXT: You/Your Family Experience fever (hyperthermia) with Anesthesia Last Oral Intake Last Oral intake: Last Oral Intake NPO since 23:00 07/30/24 07:09 Meds taken in AM with sips of water? 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 - solutions executive security: PONV - solutions executive security Female Yes 07/17/24 13:58 HX of Motion Sickness No 07/17/24 13:58 HX of N/V After Surgery No 07/17/24 13:58 Non-Smoker Yes 07/17/24 13:58 Duration of Surgery greater No 07/17/24 13:58 than 60 minutes Number of Risk Factors 2 07/17/24 13:58 PONV Score Moderate Risk 07/17/24 13:58 Height & Weight Height & Weight: Anesthesia: Height & Weight Height 5 ft 2 in 07/30/24 07:09 Weight: 109.4 kg 07/30/24 07:09 Body Mass Index (BMI) 44.1 07/30/24 07:09 Respiratory Assessment Respiratory Assessment - solutions executive security: Respiratory Tract Infection Hx - solutions executive security Hx Respiratory Tract Infection No 07/17/24 13:58 STOP Sleep Apnea STOP Sleep Apnea - solutions executive security: STOP Sleep Apnea - solutions executive security Hx Hypertension Yes: CONTROLLED WITH MED 07/17/24 13:58 Hx Sleep Apnea Yes: NON-COMPLIANT 07/17/24 13:58 CPAP Yes 07/17/24 13:58 BIPAP No 07/17/24 13:58 Do you snore loudly (louder than talking or can be heard Do you often feel tired/ fatigued/ sleepy during daytime? Has anyone observed you stop breathing during sleep? STOP Results Positive 07/17/24 13:58 QUESTION #5 FULL TEXT : Do you snore loudly (louder than talking or can be heard through closed doors)? 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 Specify any problems Hx of Preganancy in last 3 N/A 07/17/24 13:58 Months Nurse Filling Out Transfusion NBUCHER 07/17/24 13:58 & Questions: Date: 07/17/24 07/17/24 13:58 Time: 14:00 07/17/24 13:58 Patient unable to answer at this time (ie. 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 Hx of fall Post-menopausal Wears glasses Depression Anxiety Diabetes Thyroid disease Bladder disease Fatty liver Easy bruising Back pain Migraine headache Blackout Difficulty swallowing History of ulceration Gastric reflux Former smoker CPAP (continuous positive airway pressure) dependence Leg cramps History of pain when walking History of edema History of echocardiogram History of stress test Cardiology follow-up encounter History of irregular heartbeat Rheumatoid arthritis HTN (hypertension) Home Medications ?Medication ?Instructions ?Recorded ?Last Taken ?Type metoprolol succinate 25 mg 25 mg PO DAILY 09/06/20 03/09/24 History tablet,extended release 24 hr levothyroxine 50 mcg capsule 50 mcg PO DAILY 08/16/21 03/09/24 History lorazepam 0.5 mg tablet 0.5 mg PO DAILY PRN PRN anxiety 08/16/21 03/09/24 History tramadol 50 mg tablet 50 mg PO DAILY PRN PRN pain 08/16/21 03/09/24 History clobetasol 0.05 % topical ointment 1 applic topical DAILY PRN PRN SKIN 01/30/24 01/31/24 History cholecalciferol (vitamin D3) 25 25 mcg PO DAILY 03/30/24 04/09/24 History mcg (1,000 unit) capsule (Vitamin D3) cyanocobalamin (vitamin B-12) 1,000 mcg PO QDAY 03/30/24 03/09/24 History 1,000 mcg tablet (Vitamin B-12) bupropion HCl 150 mg 24 hr tablet, 150 mg PO DAILY 06/03/24 Unknown History extended release famotidine 20 mg tablet 20 mg PO QHS 07/13/24 Unknown History fluoxetine 40 mg capsule 40 mg PO DAILY 07/13/24 Unknown History hydroxyzine HCl 25 mg tablet 25 - 50 mg PO Q6H PRN PRN itch 07/13/24 Unknown History meclizine 25 mg tablet 25 mg PO 4X/DAY PRN PRN Dizziness 07/13/24 Unknown Rx #20 tabs mirabegron 50 mg tablet,extended 50 mg PO DAILY 07/13/24 Unknown History release 24 hr nystatin 100,000 unit/gram topical 1 applic topical BID 07/13/24 Unknown History ointment Allergy/AdvReac Type Severity Reaction Status Date / Time atorvastatin calcium (From Allergy Unknown Unknown Verified 07/30/24 07:08 Lipitor) Penicillins Allergy Unknown Hives Verified 07/30/24 07:08 propoxyphene napsylate (From Allergy Unknown Unknown Verified 07/30/24 07:08 Darvocet-N 100) rosuvastatin calcium (From Allergy Unknown Unknown Verified 07/30/24 07:08 Crestor) tetracycline Allergy Unknown Unknown Verified 07/30/24 07:08 Family History Father Prostate cancer Hypertension Arthritis Depression Mother Depression Hypertension Arthritis Diabetes Surgical History History of cystoscopy Hx of colonoscopy Hx of arthroscopic knee surgery History of loop recorder H/O total hysterectomy H/O arthroscopy of right knee Social History household members: spouse housing: house current occupational status: unemployed Smoking Status: Former smoker alcohol intake: current alcohol intake frequency: holidays/special occasions only substance use type: does not use what type of physical activity do you participate in: none seatbelt use: never do you feel safe at home: Yes additional social history: - Tristen Review of Systems (Anesthesia) ROS Narrative System reviewed and no additional complaints, except as documented.
--- NOTE | 2024-07-30 07:55 | RAD_ITS ---
EXAM: FL FLUOROSCOPY < 1 HOUR CLINICAL INDICATION: AXONICS STAGE 1 TECHNIQUE: Fluoroscopic images performed in multiple projections. Fluoroscopic guidance was provided by a physician. 19 seconds fluoroscopic time. 15.12mGy total dose. 3 images. COMPARISON: No relevant prior studies available. FINDINGS AND RAD/Pelvis 1 or 2 Views IMPRESSION: Intraprocedural fluoroscopic examination. Refer to the procedure note for complete details. Electronically Signed: Angel Griffiths DO at 18:03 EST ,
--- NOTE | 2024-07-30 08:40 | EX.PCM.DISCH ---
Discharge Instructions Diet Discharge Diet: No restrictions Activity Discharge Activity: May Not Shower May resume sexual activity in: 4 weeks Dressing / Incision Call your doctor if your incision/area has: Continuous Slow Oozing, Sudden Increased Bleeding, Increased Pain/ Swelling and Foul Smelling Discharge Call your doctor if you observe: Fever of 101 or Higher, Inability to urinate and Inability to have a bowel movement Suture Line Care: Avoid Pulling/Pushing and Avoid Pinching/Bending Change Dressing in: do not change dressing Remove Dressing in: do not remove dressing Cleanse incision/area with: Keep Dressing Clean & Dry Additional Dressing/Incision Instructions:: No exercise or strenuous activity Follow Up Care Please Follow Up With: Jaci Reyes MD When: As scheduled next week Test Results: Test results from this visit will be discussed in further detail at your follow-up appointment, if applicable. Discharge Plan Admission Attending Provider: Jaci Reyes Primary Care Provider: Arslan Mccarthy Instructions Print Language: Occitan Discharge Orders/Prescriptions Prescriptions: New oxycodone-acetaminophen [Percocet] 5-325 mg tablet 1 tab PO Q8H PRN (Reason: pain) 3 Days Qty: 10 0RF sulfamethoxazole-trimethoprim 800-160 mg tablet 1 tab PO BID 3 Days Qty: 6 0RF Continued metoprolol succinate 25 mg tablet extended release 24 hr 25 mg PO DAILY levothyroxine 50 mcg capsule 50 mcg PO DAILY tramadol 50 mg tablet 50 mg PO DAILY PRN PRN (Reason: pain) lorazepam 0.5 mg tablet 0.5 mg PO DAILY PRN PRN (Reason: anxiety) cholecalciferol (vitamin D3) [Vitamin D3] 25 mcg (1,000 unit) capsule 25 mcg PO DAILY cyanocobalamin (vitamin B-12) [Vitamin B-12] 1,000 mcg tablet 1,000 mcg PO QDAY bupropion HCl 150 mg tablet extended release 24 hr 150 mg PO DAILY clobetasol 0.05 % ointment 1 applic topical DAILY PRN PRN (Reason: SKIN) Rx Instructions: 1 applic topical apply bid X 2 weeks, daily X 2 weeks then prn. Small amount and massge in; fluoxetine 40 mg capsule 40 mg PO DAILY nystatin 100,000 unit/gram ointment 1 applic topical BID famotidine 20 mg tablet 20 mg PO QHS hydroxyzine HCl 25 mg tablet 25 - 50 mg PO Q6H PRN PRN (Reason: itch) mirabegron 50 mg tablet extended release 24 hr 50 mg PO DAILY meclizine 25 mg tablet 25 mg PO 4X/DAY PRN PRN (Reason: Dizziness) Qty: 20 0RF Referrals / Follow Up: Arslan Mccarthy DO [Primary Care Provider] - Disposition Disposition (needs filled in before D/C Order can be placed): Home, Self Care
--- NOTE | 2024-07-30 08:43 | OP.PCM_ITS ---
Operative Report (Standard) Operative Information Surgery/Procedure Performed: Axonics stage I Surgeon: Jaci Reyes Date of Procedure: 07/30/24 Procedure Start Time: 09:16 Procedure Stop Time: :57 Pre-Operative Diagnosis: Urge incontinence Post-Operative Diagnosis: Same Select all DRAINS/GRAFTS/IMPLANTS that apply: Implanted device Implanted device details: Axonics lead and lead extension Type of Anesthesia: MAC Estimated Blood Loss: 5cc Specimen collected: No Description of surgery: The patient is a 58-year-old female with severe urge incontinence who presents for Axonics stage I after failing multiple conservative treatments. Informed consent was obtained. She was taken to the operating room and placed in a prone position on the operating room table. She was appropriately padded and secured. Anesthesia monitored the head, neck, airway, IV access and vital signs throughout the case. Once anesthesia was appropriately administered, she was prepped and draped in usual sterile fashion. Fluoroscopy was utilized to outline her pelvic anatomy on her skin. The area overlying the insertion site for the S3 foramen was infiltrated on her right side with local anesthetic. The needle was passed through the foramen with good response on electrical stimulation with theo and toe flexion. The obturator was removed and the guidewire was inserted. The skin was incised with an 11 blade and the dilator was then passed over the guidewire into the foramen. The lead was then inserted into the foramen through the sheath. Once testing revealed good stimulation, the sheath was removed deploying the lead into position. This was checked on fluoroscopy in AP and lateral views. The pocket site was selected and infiltrated with local anesthetic. It was opened with a knife and sharp and blunt dissection was used to develop the pocket site. Bovie cautery was used for hemostatic control. The lead was then tunneled into this pocket site where it was cleaned and placed into the lead extension and secured using the torque wrench. The lead extension was then tunneled to the contralateral side where it was brought through the skin and secured using suture and Steri-Strips. The incisions were closed in 2 layers with 3-0 interrupted Vicryl followed by 4-0 Monocryl subcuticular closure and skin glue. The lead extension was inserted into the battery which was secured using an OpSite followed by cloth tape. The patient was then awakened and taken to the recovery room in good condition. There were no complications during this procedure. 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
[2024-07-30] MEDS: Lidocaine 1% /Epi 1:100 (50ml) 50 ML VIAL (09:16)
--- NOTE | 2024-07-30 10:03 | PCM.POST.ANE ---
Anesthesia: Postop Eval I Current Vital Signs Temperature: 97.6 F Pulse Rate: 74 Blood Pressure: 86/66 Respiratory Rate: 18 Pulse Ox: 94 Oxygen Delivery Method: Room Air Assessment Airway patent: Yes Spontaneous unlabored respirations: Yes Mental status: Awake and Calm nausea: No Vomiting: No Anesthesia Complication: No Fluid Hydration Crystalloid volume administer (ml): 250 Total IV fluid infused: 250 Progress Note Anesthesia document: Postop Eval 1 completed: Yes
[2024-07-30] MEDS: 0.9% Normal Saline (500mL Bag) 500 ML 999 ML IV (10:12)
[2024-07-30] MEDS: oxyCODONE 5 MG Tablet 10 MG PO (11:45)
[2024-07-30] MEDS: Acetaminophen 325 MG Tablet 650 MG PO (11:45)
--- NOTE | 2024-07-31 07:46 | POSTOPAN2_ITS ---
Anesthesia Postop Eval I Sum Postop Eval Completion status Anesthesia document: Postop Eval 1 completed: Yes Anesthesia Postop Eval I Summary Anesthesia Postop Eval I Summary: Anesthesia Postop Eval I: Assessment Summary Airway patent Yes 07/30/24 10:03 [email or web address] [email or web address] Spontaneous unlabored Yes 07/30/24 10:03 CREATIVE [email or web address] respirations Mental status Awake,Calm 07/30/24 10:03 CREATIVE [email or web address] nausea No 07/30/24 10:03 CREATIVE [email or web address] Vomiting No 07/30/24 10:03 CREATIVE DIRECTOR.[email or web address] Anesthesia Postop Eval I: Fluid Summary Crystalloid volume administer 250 07/30/24 10:03 CREATIVE DIRECTOR.[email or web address] (ml) Colloids volume administered ( ml) Blood Product volume administered (ml) Total IV fluid infused 250 07/30/24 10:03 CREATIVE DIRECTOR.[email or web address] Anesthesia Postop Eval I: Summary Notes Anesthesia Complication No 07/30/24 10:03 [email or web address] DIRECTOR.[email or web address] Anesthesia Complication Comment: Post-operative progress note Anesthesia: Postop Eval II Evaluation Mental status: Awake Pain Level: 0 nausea: No Vomiting: No
--- NOTE | 2024-07-31 07:46 | PCM.POSTANE2 ---
Anesthesia Postop Eval I Sum Postop Eval Completion status Anesthesia document: Postop Eval 1 completed: Yes Anesthesia Postop Eval I Summary Anesthesia Postop Eval I Summary: Anesthesia Postop Eval I: Assessment Summary Airway patent Yes 07/30/24 10:03 SLATE [email or web address] Spontaneous unlabored Yes 07/30/24 10:03 SLATE [email or web address] respirations Mental status Awake,Calm 07/30/24 10:03 SLATE [email or web address] nausea No 07/30/24 10:03 SLATE [email or web address] Vomiting No 07/30/24 10:03 SLATE [email or web address] Anesthesia Postop Eval I: Fluid Summary Crystalloid volume administer 250 07/30/24 10:03 SLATE [email or web address] (ml) Colloids volume administered ( ml) Blood Product volume administered (ml) Total IV fluid infused 250 07/30/24 10:03 SLATE [email or web address] Anesthesia Postop Eval I: Summary Notes Anesthesia Complication No 07/30/24 10:03 SLATE [email or web address] Anesthesia Complication Comment: Post-operative progress note Anesthesia: Postop Eval II Evaluation Mental status: Awake Pain Level: 0 nausea: No Vomiting: No
== END 2024-07-30 12:01 | disposition home or self-care (01) ==
LOC: SDC 06:47 → AC 06:48
PROVIDERS: PCP Family Medicine; Referring Provider Urology; Visit Provider Urology
PROC: (CPT 64561; principal; 2024-07-30 08:45)
DX: N39.41 Urge incontinence (principal); Z68.41 Body mass index [BMI] 40.0-44.9, adult; I10 Essential (primary) hypertension; E07.9 Disorder of thyroid, unspecified; F32.A Depression, unspecified; F41.9 Anxiety disorder, unspecified; E66.9 Obesity, unspecified; Z79.890 Hormone replacement therapy; Z79.899 Other long term (current) drug therapy; Z87.891 Personal history of nicotine dependence
CPT/HCPCS: 64561; 72170; 76000; A4216; J2405

== ENCOUNTER 2024-08-13 05:51 | Day surgery (SDC) | payer BC, SELFPAY ==
--- NOTE | 2024-08-06 07:35 | PAT.ANESEVAL ---
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 When Was Last Pacemaker Check QUESTION #4 FULL TEXT: You/Your Family Experience fever (hyperthermia) with Anesthesia Last Oral Intake Last Oral intake: Last Oral Intake NPO since Meds taken in AM with sips of water? 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 Female Yes 08/05/24 15:30 HX of Motion Sickness Yes 08/05/24 15:30 HX of N/V After Surgery No 08/05/24 15:30 Non-Smoker Yes 08/05/24 15:30 Duration of Surgery greater No 08/05/24 15:30 than 60 minutes Number of Risk Factors 3 08/05/24 15:30 PONV Score Moderate Risk 08/05/24 15:30 Height & Weight Height & Weight: Anesthesia: Height & Weight Height 5 ft 2 in 07/13/24 18:35 Respiratory Assessment Respiratory Assessment - mellowing machine operator: Respiratory Tract Infection Hx - mellowing machine operator Hx Respiratory Tract Infection No 08/05/24 15:30 STOP Sleep Apnea STOP Sleep Apnea - mellowing machine operator: STOP Sleep Apnea - mellowing machine operator Hx Hypertension Yes: CONTROLLED WITH MED 08/05/24 15:30 Hx Sleep Apnea Yes: NON-COMPLIANT 08/05/24 15:30 CPAP Yes 08/05/24 15:30 BIPAP No 08/05/24 15:30 Do you snore loudly (louder than talking or can be heard Do you often feel tired/ fatigued/ sleepy during daytime? Has anyone observed you stop breathing during sleep? STOP Results Positive 08/05/24 15:30 QUESTION #5 FULL TEXT : Do you snore loudly (louder than talking or can be heard through closed doors)? 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 Specify any problems Hx of Preganancy in last 3 N/A 08/05/24 15:30 Months Nurse Filling Out Transfusion NBUCHER 08/05/24 15:30 & Questions: Date: 08/05/24 08/05/24 15:30 Time: 15:31 08/05/24 15:30 Patient unable to answer at this time (ie. 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 machine operator Hx Now Gestational Age (in weeks): EDC: Hx Hx Para Hx Section SAB No 08/05/24 15:30 PFSH Medical History Urge incontinence Stricture of 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 Hx of fall Post-menopausal Wears glasses Depression Anxiety Diabetes Thyroid disease Bladder disease Fatty liver Easy bruising Back pain Migraine headache Blackout Difficulty swallowing History of ulceration Gastric reflux Former smoker CPAP (continuous positive airway pressure) dependence Leg cramps History of pain when walking History of edema History of echocardiogram History of stress test Cardiology follow-up encounter History of irregular heartbeat Rheumatoid arthritis HTN (hypertension) Home Medications ?Medication ?Instructions ?Recorded ?Last Taken ?Type metoprolol succinate 25 mg 25 mg PO DAILY 09/06/20 03/09/24 History tablet,extended release 24 hr levothyroxine 50 mcg capsule 50 mcg PO DAILY 08/16/21 03/09/24 History lorazepam 0.5 mg tablet 0.5 mg PO DAILY PRN PRN anxiety 08/16/21 03/09/24 History tramadol 50 mg tablet 50 mg PO DAILY PRN PRN pain 08/16/21 03/09/24 History clobetasol 0.05 % topical ointment 1 applic topical DAILY PRN PRN SKIN 01/30/24 01/31/24 History cholecalciferol (vitamin D3) 25 25 mcg PO DAILY 03/30/24 04/09/24 History mcg (1,000 unit) capsule (Vitamin D3) cyanocobalamin (vitamin B-12) 1,000 mcg PO QDAY 03/30/24 03/09/24 History 1,000 mcg tablet (Vitamin B-12) bupropion HCl 150 mg 24 hr tablet, 150 mg PO DAILY 06/03/24 Unknown History extended release famotidine 20 mg tablet 20 mg PO QHS 07/13/24 Unknown History fluoxetine 40 mg capsule 40 mg PO DAILY 07/13/24 Unknown History hydroxyzine HCl 25 mg tablet 25 - 50 mg PO Q6H PRN PRN itch 07/13/24 Unknown History meclizine 25 mg tablet 25 mg PO 4X/DAY PRN PRN Dizziness 07/13/24 Unknown Rx #20 tabs mirabegron 50 mg tablet,extended 50 mg PO DAILY 07/13/24 Unknown History release 24 hr nystatin 100,000 unit/gram topical 1 applic topical BID 07/13/24 Unknown History ointment oxycodone-acetaminophen 5 mg-325 1 tab PO Q8H PRN pain 3 days #10 07/30/24 Unknown Rx mg tablet (Percocet) tabs Allergy/AdvReac Type Severity Reaction Status Date / Time atorvastatin calcium (From Allergy Unknown Unknown Verified 08/05/24 15:28 Lipitor) Penicillins Allergy Unknown Hives Verified 08/05/24 15:28 propoxyphene napsylate (From Allergy Unknown Unknown Verified 08/05/24 15:28 Darvocet-N 100) rosuvastatin calcium (From Allergy Unknown Unknown Verified 08/05/24 15:28 Crestor) tetracycline Allergy Unknown Unknown Verified 08/05/24 15:28 Family History Father Prostate cancer Hypertension Arthritis Depression Mother Depression Hypertension Arthritis Diabetes Surgical History History of cystoscopy Hx of colonoscopy Hx of arthroscopic knee surgery History of loop recorder H/O total hysterectomy H/O arthroscopy of right knee Social History household members: spouse housing: house current occupational status: unemployed Smoking Status: Former smoker alcohol intake: current alcohol intake frequency: holidays/special occasions only substance use type: does not use what type of physical activity do you participate in: none seatbelt use: never do you feel safe at home: Yes additional social history: - Tristen Audit: Pertinent Findings Pertinent Findings EKG Perinent findings: NSR 68 bpm 07/14/24 Echo (EF%) pertinent findings: 05/11 EF 65% Recommendation Anesthesia Recommendation Anesthesia recommendation: OPTIMIZED for anesthesia
[2024-08-13] VITALS (10 sets, daily range): BP systolic 96–144; BP diastolic 53–64; PULSE 59–62; RESP 16–18; TEMP 36.1–36.3; O2SAT 91–96; BMI 43.9
[2024-08-13] MEDS: 0.9% Normal Saline (500mL Bag) 500 ML 15 ML IV (06:35)
[2024-08-13] MEDS: Vancomycin HCl 1,750 MG in 0.9% Normal Saline (500mL Bag) 500 ML 250 MG IV (06:40)
--- NOTE | 2024-08-13 06:59 | PCM.PRE.AN2 ---
ASA Classification* ASA Classification ASA Classification: 2 Assessment & Plan Anesthesia* Anesthesia Assessment Anesthesia Assessment: Discussed sedation and/or anesthesia options, risks, benefits, and alternatives with patient/parents/legal guardian/POA. Questions invited. The patient/parents/legal guardian/POA seems to understand and agrees to proceed with anesthesia plan. Reviewed the physical assessment, medical history, allergy history and patient home medications list prior to surgery/procedure/anesthetic and documented any changes. Performed airway and anesthesia risk assessments. Anesthesia Type Anesthesia Type: MAC Anesthesia Focused Assessment* Temperature: 97.4 F Pulse Rate: 62 Blood Pressure: 144/64 Respiratory Rate: 18 Pulse Ox: 96 Airway Assessment Mouth opens: >3 cm Mallampati Score: II Focused Labs Anesthesia Preop lab: CBC WBC 7.0 K/mm3 (4.4-11.0) 07/13/24 18:16 RBC 4.48 M/mm3 (4.2-5.4) 07/13/24 18:16 Hgb 12.7 g/dL (12.0-15.0) 07/13/24 18:16 Hct 39.3 % (37-47) 07/13/24 18:16 Plt Count 236 K/mm3 (150-450) 07/13/24 18:16 CHEMISTRY Potassium 3.5 mmol/L (3.5-5.1) 07/13/24 18:16 Sodium 141 mmol/L (136-145) 07/13/24 18:16 Magnesium 1.5 mg/dL (1.8-2.4) L 05/11/15 02:16 BUN 16 mg/dL (7-18) 07/13/24 18:16 Creatinine 0.83 mg/dL (0.55-1.02) 07/13/24 18:16 Glucose 102 mg/dL (74-106) 07/13/24 18:16 TSH 3.36 uIU/mL (0.358-3.74) 02/28/23 10:27 COAG PT 12.2 SECONDS (11.7-14.9) 07/13/24 18:16 Pre-Assessment Diagnosis/Proposed Procedure Planned Operative Procedure(s): Axonics Stage 2 Anesthesia History Anesthesia History - juvenile correctional officer: Anesthesia History - juvenile correctional officer Hx Hospitalization No 08/05/24 15:30 Any Problems With Anesthesia Yes: SLOW TO AWAKEN 08/05/24 15:30 Cholinesterase deficiency No 08/05/24 15:30 You/Your Family Experience No 08/05/24 15:30 fever (hyperthermia) with Relationship Recent Exposure to Contagious No 08/13/24 06:23 Disease Does patient have nerve No 08/05/24 15:30 stimulator Patient instructed to have device shut off --Does patient have Pacemaker No 08/13/24 06:24 or ICD? When Was Last Pacemaker Check QUESTION #4 FULL TEXT: You/Your Family Experience fever (hyperthermia) with Anesthesia Last Oral Intake Last Oral intake: Last Oral Intake NPO since 22:00 08/13/24 06:24 Meds taken in AM with sips of No 08/13/24 06:24 water? 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 - juvenile correctional officer: PONV - juvenile correctional officer Female Yes 08/05/24 15:30 HX of Motion Sickness Yes 08/05/24 15:30 HX of N/V After Surgery No 08/05/24 15:30 Non-Smoker Yes 08/05/24 15:30 Duration of Surgery greater No 08/05/24 15:30 than 60 minutes Number of Risk Factors 3 08/05/24 15:30 PONV Score Moderate Risk 08/05/24 15:30 Height & Weight Height & Weight: Anesthesia: Height & Weight Height 5 ft 2 in 08/13/24 06:24 Weight: 108.953 kg 08/13/24 06:24 Body Mass Index (BMI) 43.9 08/13/24 06:24 Respiratory Assessment Respiratory Assessment - juvenile correctional officer: Respiratory Tract Infection Hx - juvenile correctional officer Hx Respiratory Tract Infection No 08/05/24 15:30 STOP Sleep Apnea STOP Sleep Apnea - juvenile correctional officer: STOP Sleep Apnea - juvenile correctional officer Hx Hypertension Yes: CONTROLLED WITH MED 08/05/24 15:30 Hx Sleep Apnea Yes: NON-COMPLIANT 08/05/24 15:30 CPAP Yes 08/05/24 15:30 BIPAP No 08/05/24 15:30 Do you snore loudly (louder than talking or can be heard Do you often feel tired/ fatigued/ sleepy during daytime? Has anyone observed you stop breathing during sleep? STOP Results Positive 08/05/24 15:30 QUESTION #5 FULL TEXT : Do you snore loudly (louder than talking or can be heard through closed doors)? Tobacco Use History Tobacco Use History - juvenile correctional officer: Tobacco Use History - juvenile correctional officer Tobacco Use Non-smoker 08/10/21 13:16 Smoking Status Former smoker 08/05/24 15:30 Hx Tobacco Use No 08/05/24 15:30 Years Smoking Packs Smoked per Day Smoking Cessation Date was No - quit smoking greater 08/05/24 15:30 within the last 15 years than 15 years ago Hx Smoking Cessation Date 08/26/82 08/05/24 15:30 Hx Smoking Cessation No 08/05/24 15:30 Counseling Hematologic Medial History Hematologic Hx - juvenile correctional officer: Hematologic Medical Hx - content designer Hx of Blood Transfusion No 08/05/24 15:30 Hx of Transfusion in last 3 No 08/05/24 15:30 Months Date of Last Transfusion (if within last 3 months) Ever experience any problems No 08/05/24 15:30 with transfusion(s)? Specify any problems Hx of Preganancy in last 3 N/A 08/05/24 15:30 Months Nurse Filling Out Transfusion NBUCHER 08/05/24 15:30 & Questions: Date: 08/05/24 08/05/24 15:30 Time: 15:31 08/05/24 15:30 Patient unable to answer at this time (ie. confused, unrespo /Reproduction History /Reproductive History - juvenile correctional officer: /Reproductive Hx- juvenile correctional officer Hx Now Gestational Age (in weeks): EDC: Hx Hx Para Hx Section SAB No 08/05/24 15:30 Active Medications Active Medications: Current Medications Generic Name Dose Route Start Last Admin Trade Name Freq PRN Reason Stop Dose Admin Vancomycin HCl 1,750 mg/ 535 mls @ 250 mls/hr 08/13/24 07:30 08/13/24 06:40 Sodium Chloride IV 08/13/24 09:38 250 mls/hr PREOP ONE Administration Sodium Chloride 500 mls @ 0 mls/hr 08/13/24 06:45 08/13/24 06:35 IV 15 mls/hr .Q0M WYATT Administration KVO PFSH Medical History Urge incontinence Stricture of 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 Hx of fall Post-menopausal Wears glasses Depression Anxiety Diabetes Thyroid disease Bladder disease Fatty liver Easy bruising Back pain Migraine headache Blackout Difficulty swallowing History of ulceration Gastric reflux Former smoker CPAP (continuous positive airway pressure) dependence Leg cramps History of pain when walking History of edema History of echocardiogram History of stress test Cardiology follow-up encounter History of irregular heartbeat Rheumatoid arthritis HTN (hypertension) Home Medications ?Medication ?Instructions ?Recorded ?Last Taken ?Type metoprolol succinate 25 mg 25 mg PO DAILY 09/06/20 08/12/24 20:00 History tablet,extended release 24 hr levothyroxine 50 mcg capsule 50 mcg PO DAILY 08/16/21 08/12/24 07:00 History lorazepam 0.5 mg tablet 0.5 mg PO DAILY PRN PRN anxiety 08/16/21 03/09/24 History tramadol 50 mg tablet 50 mg PO DAILY PRN PRN pain 08/16/21 03/09/24 History clobetasol 0.05 % topical ointment 1 applic topical DAILY PRN PRN SKIN 01/30/24 01/31/24 History cholecalciferol (vitamin D3) 25 25 mcg PO DAILY 03/30/24 08/12/24 20:00 History mcg (1,000 unit) capsule (Vitamin D3) cyanocobalamin (vitamin B-12) 1,000 mcg PO QDAY 03/30/24 08/12/24 20:00 History 1,000 mcg tablet (Vitamin B-12) bupropion HCl 150 mg 24 hr tablet, 150 mg PO DAILY 06/03/24 08/12/24 20:00 History extended release famotidine 20 mg tablet 20 mg PO QHS 07/13/24 08/12/24 20:00 History fluoxetine 40 mg capsule 40 mg PO DAILY 07/13/24 08/12/24 20:00 History hydroxyzine HCl 25 mg tablet 25 - 50 mg PO Q6H PRN PRN itch 07/13/24 Unknown History meclizine 25 mg tablet 25 mg PO 4X/DAY PRN PRN Dizziness 07/13/24 Unknown Rx #20 tabs mirabegron 50 mg tablet,extended 50 mg PO DAILY 07/13/24 Unknown History release 24 hr nystatin 100,000 unit/gram topical 1 applic topical BID 11/18/24 Unknown History ointment oxycodone-acetaminophen 5 mg-325 1 tab PO Q8H PRN pain 3 days #10 07/30/24 Unknown Rx mg tablet (Percocet) tabs Allergy/AdvReac Type Severity Reaction Status Date / Time atorvastatin calcium (From Allergy Unknown Unknown Verified 08/13/24 06:15 Lipitor) Penicillins Allergy Unknown Hives Verified 08/13/24 06:15 propoxyphene napsylate (From Allergy Unknown Unknown Verified 08/13/24 06:15 Darvocet-N 100) rosuvastatin calcium (From Allergy Unknown Unknown Verified 08/13/24 06:15 Crestor) tetracycline Allergy Unknown Unknown Verified 08/13/24 06:15 Family History Father Prostate cancer Hypertension Arthritis Depression Mother Depression Hypertension Arthritis Diabetes Surgical History History of cystoscopy Hx of colonoscopy Hx of arthroscopic knee surgery History of loop recorder H/O total hysterectomy H/O arthroscopy of right knee Social History household members: spouse housing: house current occupational status: unemployed Smoking Status: Former smoker alcohol intake: current alcohol intake frequency: holidays/special occasions only substance use type: does not use what type of physical activity do you participate in: none seatbelt use: never do you feel safe at home: Yes additional social history: - Tristen Review of Systems (Anesthesia) ROS Narrative System reviewed and no additional complaints, except as documented.
[2024-08-13] MEDS: Lidocaine 1% /Epi 1:100 (20ml) 20 ML Vial (08:18)
--- NOTE | 2024-08-13 08:36 | DCINST_ITS ---
Discharge Instructions Diet Discharge Diet: No restrictions Activity Discharge Activity: May Shower (on Saturday morning) May resume sexual activity in: 4 weeks Dressing / Incision Call your doctor if your incision/area has: Continuous Slow Oozing, Sudden Increased Bleeding, Increased Pain/ Swelling, Increased Redness, Foul Smelling Discharge and Swelling at the incision site Call your doctor if you observe: Fever of 101 or Higher, Inability to urinate and Inability to have a bowel movement Suture Line Care: Avoid Pulling/Pushing and Avoid Pinching/Bending Change Dressing in: leave in place till F/U (do not remove skin glue) Cleanse incision/area with: Keep Dressing Clean & Dry Follow Up Care Please Follow Up With: Jaci Reyes MD When: 4 weeks in the office Test Results: Test results from this visit will be discussed in further detail at your follow- up appointment, if applicable. Discharge Plan Admission Attending Provider: Jaci Reyes Primary Care Provider: Arslan Mccarthy Instructions Print Language: Guatemalan Discharge Orders/Prescriptions Prescriptions: New oxycodone-acetaminophen 5-325 mg tablet 1 tab PO Q8H PRN PRN (Reason: Pain) 3 Days Qty: 10 0RF sulfamethoxazole-trimethoprim 800-160 mg tablet 1 tab PO BID 3 Days Qty: 6 0RF Continued metoprolol succinate 25 mg tablet extended release 24 hr 25 mg PO DAILY levothyroxine 50 mcg capsule 50 mcg PO DAILY tramadol 50 mg tablet 50 mg PO DAILY PRN PRN (Reason: pain) lorazepam 0.5 mg tablet 0.5 mg PO DAILY PRN PRN (Reason: anxiety) cholecalciferol (vitamin D3) [Vitamin D3] 25 mcg (1,000 unit) capsule 25 mcg PO DAILY cyanocobalamin (vitamin B-12) [Vitamin B-12] 1,000 mcg tablet 1,000 mcg PO QDAY bupropion HCl 150 mg tablet extended release 24 hr 150 mg PO DAILY oxycodone-acetaminophen [Percocet] 5-325 mg tablet 1 tab PO Q8H PRN (Reason: pain) 3 Days Qty: 10 0RF clobetasol 0.05 % ointment 1 applic topical DAILY PRN PRN (Reason: SKIN) Rx Instructions: 1 applic topical apply bid X 2 weeks, daily X 2 weeks then prn. Small amount and massge in; fluoxetine 40 mg capsule 40 mg PO DAILY nystatin 100,000 unit/gram ointment 1 applic topical BID famotidine 20 mg tablet 20 mg PO QHS hydroxyzine HCl 25 mg tablet 25 - 50 mg PO Q6H PRN PRN (Reason: itch) mirabegron 50 mg tablet extended release 24 hr 50 mg PO DAILY meclizine 25 mg tablet 25 mg PO 4X/DAY PRN PRN (Reason: Dizziness) Qty: 20 0RF Referrals / Follow Up: Arslan Mccarthy DO [Primary Care Provider] - Disposition Disposition (needs filled in before D/C Order can be placed): Home, Self Care
--- NOTE | 2024-08-13 08:40 | SUR.PHASEI ---
called anesthesia waiting for pain medication
--- NOTE | 2024-08-13 08:49 | PCM.OPRPT ---
Operative Report (Standard) Operative Information Date of Procedure: 08/13/24 Pre-Operative Diagnosis: Urge incontinence Post-Operative Diagnosis: Same Surgery/Procedure Performed: Axonics stage cash posting clerk: No Type of Anesthesia: MAC RN Documented Start/Stop Times: Operation Date: 08/13/24 07:30 Case Time Into Pre-Op 08/13/24 06:04 Out of Pre-Op 08/13/24 07:41 Anesthesia Start 08/13/24 07:46 Into Room 08/13/24 07:46 Procedure Start 08/13/24 08:05 Procedure End 08/13/24 08:22 Anesthesia End 08/13/24 08:26 Out of Room 08/13/24 08:26 Into Recovery 08/13/24 08:30 Procedure Start Time: 08:05 Procedure Stop Time: 08:22 Select all DRAINS/GRAFTS/IMPLANTS that apply: Implanted device Implanted device details: Axonics battery Estimated Blood Loss: 5 cc Specimen collected: No Description of surgery: The patient is a 58-year-old female who is now dry with a Axonics stage I trial and presents for the battery implantation. Informed consent was obtained. The patient was taken to the operating room and placed in a prone position on the operating room table. She was appropriately padded and secured to the table. Anesthesia monitored the head, neck, airway, IV access and vital signs throughout the case. Once anesthesia was appropriate administered, she was prepped and draped in usual sterile fashion. The area surrounding the pocket site incision was infiltrated with lidocaine with epinephrine. The incision was opened using hemostats and a knife. The lead extension was removed from underneath the drape from the contralateral side and a torque wrench was used to remove the boot. The pocket site was enlarged using a knife and Bovie cautery as well as blunt dissection. The pocket was irrigated with sterile water. Once hemostasis was obtained, the lead was dried and inserted into the battery and secured using the torque wrench. The battery was then placed into the pocket and good positioning. The incision was closed using interrupted 3-0 Vicryl followed by 4-0 subcuticular suturing and skin glue. The patient requested a small skin tag above the area to be removed and this was done with a knife and 1 suture was placed. The patient was then awakened and taken to the recovery room in good condition. There were no complications during this procedure Surgical Findings: Battery implanted on the right side, no complications, good impedance check Complications Complications: No Admit VTE Documentation VTE Present on Admission: Yes VTE Mechan Device Prophylaxis: SCD's VTE Pharm Prophylaxis ordered?: No Reason prophylaxis not ordered: Treatment Not Indicated
--- NOTE | 2024-08-13 09:37 | PCM.POST.ANE ---
Anesthesia: Postop Eval I Current Vital Signs Temperature: 97 F Pulse Rate: 62 Blood Pressure: 96/59 Respiratory Rate: 16 Pulse Ox: 96 Oxygen Delivery Method: Room Air Assessment Airway patent: Yes Spontaneous unlabored respirations: Yes Mental status: Awake and Calm nausea: No Vomiting: No Anesthesia Complication: No Fluid Hydration Crystalloid volume administer (ml): 500 Total IV fluid infused: 500 Progress Note Anesthesia document: Postop Eval 1 completed: Yes
--- NOTE | 2024-08-14 07:31 | POSTOPAN2_ITS ---
Anesthesia Postop Eval I Sum Postop Eval Completion status Anesthesia document: Postop Eval 1 completed: Yes Anesthesia Postop Eval I Summary Anesthesia Postop Eval I Summary: Anesthesia Postop Eval I: Assessment Summary Airway patent Yes 08/13/24 09:38 [email or web address] [email or web address] Spontaneous unlabored Yes 08/13/24 09:38 [email or web address] [email or web address] respirations Mental status Awake,Calm 08/13/24 09:38 [email or web address] nausea No 08/13/24 09:38 [email or web address] [email or web address] Vomiting No 08/13/24 09:38 NEWSPAPER INSERTERLUIS MIGUEL Anesthesia Postop Eval I: Fluid Summary Crystalloid volume administer 500 08/13/24 09:38 [email or web address] (ml) Colloids volume administered ( ml) Blood Product volume administered (ml) Total IV fluid infused 500 08/13/24 09:38 [email or web address] [email or web address] Anesthesia Postop Eval I: Summary Notes Anesthesia Complication No 08/13/24 09:38 SKYLAR Anesthesia Complication Comment: Post-operative progress note Anesthesia: Postop Eval II Evaluation Mental status: Awake Pain Level: 0 nausea: No Vomiting: No
--- NOTE | 2024-08-14 07:31 | PCM.POSTANE2 ---
Anesthesia Postop Eval I Sum Postop Eval Completion status Anesthesia document: Postop Eval 1 completed: Yes Anesthesia Postop Eval I Summary Anesthesia Postop Eval I Summary: Anesthesia Postop Eval I: Assessment Summary Airway patent Yes 08/13/24 09:38 [email or web address] [email or web address] Spontaneous unlabored Yes 08/13/24 09:38 DOUGH [email or web address] respirations Mental status Awake,Calm 08/13/24 09:38 [email or web address] nausea No 08/13/24 09:38 DOUGH [email or web address] Vomiting No 08/13/24 09:38 DOUGH SHEETERLUIS MIGUEL Anesthesia Postop Eval I: Fluid Summary Crystalloid volume administer 500 08/13/24 09:38 [email or web address] (ml) Colloids volume administered ( ml) Blood Product volume administered (ml) Total IV fluid infused 500 08/13/24 09:38 DOUGH [email or web address] Anesthesia Postop Eval I: Summary Notes Anesthesia Complication No 08/13/24 09:38 SKYLAR Anesthesia Complication Comment: Post-operative progress note Anesthesia: Postop Eval II Evaluation Mental status: Awake Pain Level: 0 nausea: No Vomiting: No
== END 2024-08-13 09:48 | disposition home or self-care (01) ==
LOC: SDC 05:52 → AC 05:54
PROVIDERS: PCP Family Medicine; Referring Provider Urology; Visit Provider Urology
PROC: (CPT 64590; principal; 2024-08-13 07:20)
DX: N39.41 Urge incontinence (principal); I10 Essential (primary) hypertension; Z79.899 Other long term (current) drug therapy; Z87.891 Personal history of nicotine dependence
CPT/HCPCS: 64590; 00300; J2405

== ENCOUNTER → 2024-10-13 | Outpatient (CLI) | payer BC, SELFPAY ==
[2024-10-13 12:49] LABS: Absolute Lymphocyte Count 2.05 X10^3/uL (0.83-4.51); Absolute Neutrophil Count 3.3 X10^3/uL (2.0-7.7); Basophil# 0.02 X10^3/uL; Basophil% 0.3 % (0-1); Eosinophil# 0.09 X10^3/uL; Eosinophils% 1.5 % (0-5); Hematocrit 37.6 % (37-47); Hemoglobin 12.4 g/dL (12.0-15.0); Lymphocyte # 2.05 X10^3/ul (0.83-4.51); Lymphocyte % 34.7 % (19-41); Mean Corpuscular Hgb 28.6 pg (27.0-32.0); Mean Corpuscular Volume 86.8 fL (81-99); Mean Platelet Vol. 11.2 fl (6.2-12.0); Monocyte# 0.42 X10^3/uL; Monocyte% 7.1 % (0-10); NRBC Flagged by Analyzer 0 % (0-5); Neutrophil # 3.31 X10^3/uL (2.7-7.7); Neutrophil % 56.2 % (47-70); Platelet Count 231 K/mm3 (150-450); RBC Distribution Width CV 13.2 % (11.6-14.6); RBC Distribution Width SD 41.8 fl (35.1-43.9); Red Blood Count 4.33 M/mm3 (4.2-5.4); White Blood Count 5.9 K/mm3 (4.4-11.0)
[2024-10-13 14:04] LABS: Anion Gap 8 (5-15); BUN 20 mg/dL (7-18); BUN/Creat Ratio 17.7 RATIO (10-20); Calcium,Total 9.9 mg/dL (8.5-10.1); Chloride 106 mmol/L (98-107); Cholesterol 220 mg/dL (200); Creatinine, Serum 1.13 mg/dL (0.55-1.02); EST Glomerular Filtration Rate 52 mL/min (>60); Est Glom Filt Rate - Afr Amer 63 mL/min (>60); Glucose 104 mg/dL (74-106); High Density Lipoprotein 59 mg/dL; Potassium 3.6 mmol/L (3.5-5.1); Sodium Level 141 mmol/L (136-145); T4 Free Direct 1.09 ng/dL (0.76-1.46); Thyroid Stim Hormone (TSH) 0.717 uIU/mL (0.358-3.740); Triglycerides 138 mg/dL; Very Low Density Lipoprotein 28 mg/dL (5-40)
[2024-10-13 14:34] LABS: Hemoglobin A1c 6.3 % (3.8-5.6)
== END | disposition home or self-care (01) ==
LOC: BFHLAB 10:03
PROVIDERS: PCP Family Medicine; Visit Provider Family Medicine
DX: Z00.00 Encounter for general adult medical examination without abnormal findings (principal); E03.9 Hypothyroidism, unspecified
CPT/HCPCS: 36415; 80048; 80061; 83036; 84439; 84443; 85025

== ENCOUNTER 2024-12-27 11:45 | Emergency (ER) | payer BC, SELFPAY ==
[2024-12-27 11:46] VITALS: BP 133/61; PULSE 62; RESP 18; TEMP 36.6; O2SAT 97; BMI 42.7
--- NOTE | 2024-12-27 12:26 | EKG12_ITS ---
Test Reason : SYNCOPE Blood Pressure : */* mmHG Vent. Rate : 60 BPM Atrial Rate : 60 BPM P-R Int : 188 ms QRS Dur : 96 ms QT Int : 430 ms P-R-T Axes : 46 14 40 degrees QTcB Int : 430 ms Normal sinus rhythm Normal ECG Confirmed by Lyndon Gutierrez ([id number]), city editor HENRY BAKER ([id number]) on 01/01/2025 12:08:34 PM Referred By: CHAI/BEBO Confirmed By: Lyndon Gutierrez
--- NOTE | 2024-12-27 12:43 | EX.ED.DYSGE1 ---
HPI History of Present Illness Chief Complaint: Syncope Detail of Chief Complaint: [facility]opal event at [facility]. Prior history of. Informant: patient and spouse/S.O. Onset/Context/Timing Onset: Today Context: Sudden Onset Timing: Intermittent Current Severity: Gone Maximum Severity: Mild Narrative Narrative: 59-year-old female history of diabetes and hypertension. Prior syncopal events. Previously had a defibrillator in which they took out. States that she had 2-3 syncopal events that it triggers. Prior to [facility] she felt fine. Said she felt lightheaded when they came on. No headache. No chest pain. No shortness of breath. No recent illness. Denies nausea, vomiting or diarrhea. No melena. Currently states she is feeling fine. She has had prior episodes like this without any specific diagnosis with significant workup. Prior similar symptoms: Yes Recent Illness/Hospitalization: No PFSH PFSH Medical History Urge incontinence Stricture of 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 Hx of fall Post-menopausal Wears glasses Depression Anxiety Diabetes Thyroid disease Bladder disease Fatty liver Easy bruising Back pain Migraine headache Blackout Difficulty swallowing History of ulceration Gastric reflux Former smoker CPAP (continuous positive airway pressure) dependence Leg cramps History of pain when walking History of edema History of echocardiogram History of stress test Cardiology follow-up encounter History of irregular heartbeat Rheumatoid arthritis HTN (hypertension) Home Medications ?Medication ?Instructions ?Recorded ?Last Taken ?Type metoprolol succinate 25 mg 25 mg PO DAILY 09/06/20 12/26/24 History tablet,extended release 24 hr levothyroxine 50 mcg capsule 50 mcg PO DAILY 08/16/21 12/26/24 History lorazepam 0.5 mg tablet 0.5 mg PO DAILY PRN anxiety 08/16/21 03/09/24 History tramadol 50 mg tablet 50 mg PO DAILY PRN pain 08/16/21 12/26/24 History clobetasol 0.05 % topical ointment 1 applic topical DAILY PRN SKIN 01/30/24 01/31/24 History cholecalciferol (vitamin D3) 25 25 mcg PO DAILY 03/30/24 12/26/24 History mcg (1,000 unit) capsule (Vitamin D3) cyanocobalamin (vitamin B-12) 1,000 mcg PO DAILY 03/30/24 12/26/24 History 1,000 mcg tablet (Vitamin B-12) bupropion HCl 150 mg 24 hr tablet, 150 mg PO DAILY 06/03/24 12/26/24 History extended release fluoxetine 40 mg capsule 40 mg PO DAILY 07/13/24 08/12/24 20:00 History hydroxyzine HCl 25 mg tablet 25 - 50 mg PO Q6H PRN itch 07/13/24 Unknown History meclizine 25 mg tablet 25 mg PO 4X/DAY PRN Dizziness 12/27/24 Unknown History Allergy/AdvReac Type Severity Reaction Status Date / Time atorvastatin calcium (From Allergy Unknown Unknown Verified 12/27/24 11:45 Lipitor) Penicillins Allergy Unknown Hives Verified 12/27/24 11:45 propoxyphene napsylate (From Allergy Unknown Unknown Verified 12/27/24 11:45 Darvocet-N 100) rosuvastatin calcium (From Allergy Unknown Unknown Verified 12/27/24 11:45 Crestor) tetracycline Allergy Unknown Unknown Verified 12/27/24 11:45 Family History Father Prostate cancer Hypertension Arthritis Depression Mother Depression Hypertension Arthritis Diabetes Surgical History History of cystoscopy Hx of colonoscopy Hx of arthroscopic knee surgery History of loop recorder H/O total hysterectomy H/O arthroscopy of right knee Social History household members: spouse housing: house current occupational status: unemployed Smoking Status: Former smoker alcohol intake: current alcohol intake frequency: holidays/special occasions only substance use type: does not use what type of physical activity do you participate in: none seatbelt use: never do you feel safe at home: Yes additional social history: - Tristen ROS ROS ED ROS Narrative Denies recent illness. Constitutional Constitutional ED: Denies chills or fever(s) Eyes Eyes: Denies blurry vision ENT ENT ED: Denies ear pain Cardiovascular Cardiovascular: Denies chest pain Respiratory/Chest Respiratory/Chest: Denies cough or dyspnea Gastrointestinal Gastrointestinal: Denies abdominal pain Genitourinary Genitourinary ED: Denies dysuria or hematuria Musculoskeletal Musculoskeletal: Denies arthralgias or back pain Integumentary Denies abscess or Abrasions Neurologic Neurologic: Denies headache(s) Psychiatric Psychiatric: Denies anxiety Endocrine Endocrinology: Denies cold intolerance Hematologic/Lymphatic Hematologic/Lymphatic: Reports none Allergic/Immunologic Allergic/Immunologic ED: Denies mouth swelling, tongue swelling or urticaria EXAM Physical Exam Narrative Exam Narrative: 59-year-old female sitting upright in bed vital signs are stable afebrile. Pulse ox 97% on room air. Afebrile. She does not look septic doctor in any distress. H EENT exam pupils round react to light. No trauma to her head or face. Nontender. Moist mucous membranes. Neck nontender. Trachea midline. Back and spine nontender. Lungs clear. Heart regular rhythm no murmur. Abdomen soft nontender. Moving all 4 extremities. 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 Dorsi plantarflexion intact. Normal range of motion. No deformity. No edema. Normal strength. Neurologically she is awake alert. No focal motor deficits. NIH 0. GCS 15. Const Vital Signs: 12/27/24 11:46 12/27/24 12:26 12/27/24 12:33 Temperature 97.8 F Temperature Source Oral Pulse Rate 62 Pulse Rate [Lying] Pulse Rate [Sitting (for 1 minute prior to obtaining)] Respiratory Rate 18 Respiratory Effort Normal Respiratory Pattern Normal Blood Pressure 133/61 H Blood Pressure [Lying] Blood Pressure [Sitting (for 1 minute prior to obtaining)] Blood Pressure [Standing (for 1 minute prior to obtaining)] Blood Pressure Mean 85 Blood Pressure Mean [Lying] Blood Pressure Mean [Sitting (for 1 minute prior to obtaining)] Blood Pressure Mean [Standing (for 1 minute prior to obtaining)] Pulse Ox 97 Oxygen Delivery Method Room Air Room Air 12/27/24 12:45 12/27/24 14:09 Temperature Temperature Source Pulse Rate 59 L Pulse Rate [Lying] 64 Pulse Rate [Sitting (for 1 minute prior to obtaining)] 72 Respiratory Rate 16 Respiratory Effort Respiratory Pattern Blood Pressure 130/75 H Blood Pressure [Lying] 132/58 H Blood Pressure [Sitting (for 1 minute prior to obtaining)] 141/73 H Blood Pressure [Standing (for 1 minute prior to obtaining)] 132/73 H Blood Pressure Mean 93 Blood Pressure Mean [Lying] 82 Blood Pressure Mean [Sitting (for 1 minute prior to obtaining)] 95 Blood Pressure Mean [Standing (for 1 minute prior to obtaining)] 92 Pulse Ox 97 Oxygen Delivery Method Room Air Positive well nourished and well developed; Negative for cachectic, contractures or unkempt General Appearance ED: well developed and NAD; Negative for unkempt, cachectic, contractures, cyanotic, diaphoretic or pallor Nutritional Appearance: Negative for cachectic HEENT Reports moist mucous membranes Negative for trauma or tenderness Eyes PERRL and EOMs intact bilaterally Neck no lymphadenopathy, supple and no JVD Chest Wall inspection of chest normal and palpation of chest normal Resp normal respiratory effort and clear to auscultation bilaterally Effort and Inspection: Negative for retractions Auscultation: Negative for rales, rhonchi, wheezes or diminished lung sounds Cardio regular rate, regular rhythm, S1 normal heart sound, S2 normal heart sound and no murmurs Palpation: Negative for palpable S3 or palpable S4 Rate: Negative for bradycardia or tachycardic Rhythm: Negative for abnormal rhythm GI normal to inspection, nondistended, normoactive bowel sounds, non-tender, non-distended and no masses Inspection: Negative for abdominal distention Auscultation: normoactive bowel sounds Palpation: soft; Negative for tender, guarding, splenomegaly, mass or rebound tenderness present Back/Spine no CVA tenderness General Back: Negative for CVA tenderness Cervical Spine: Negative for cervical spine tenderness Thoracic Spine / Upper Back: Negative for thoracic spinal tenderness or paraspinal muscle tenderness Lumbar Spine / Lower Back: Negative for lumbar spinal tenderness Extremity normal to inspection General Extremety ED: Negative for edema or tenderness General Extremity: Negative for edema Neuro oriented x3, CN's II-XII intact bilaterally and no sensory deficits noted Sensorium / Orientation: alert; Negative for orientation impaired, lethargic or stuporous Sensory Exam: No sensory level loss detected Motor Exam: strength 5/5 throughout Psych mental status grossly normal Appearance: Negative for unkempt Attitude: No agitated Mood & Affect: Negative for depressed, anxious or tearful Skin no rashes or lesions noted, no wounds and skin turgor normal General Skin Exam: Negative for jaundice or pallor Lesions: No lesion noted Rashes: No rashes noted Trauma: Negative for abrasion Wounds: Negative for wounds noted MDM MDM MDM Narrative Medical decision making narrative: 59-year-old female [facility]opal episodes at [facility] prior history without diagnosis. Exam benign. She undergo a cardiac workup. She had not eaten today but when they checked her blood sugar at the scene it was 120. And her prearrival EKG was unremarkable with a rate of 65. Repeat exam patient is doing well at 3:30 PM. We went over her test results. Orthostatic vital signs, labs, EKG and chest x-ray were all unremarkable. I discussed with both her and her what they would like to do. I am happy to admit her for observation for syncope. However she has had this multiple times in the past has had no specific diagnosis. I discussed this with her and her . She prefers not to stay. She will follow-up with her primary care physician. History & Record Review Discussion w/independent historian: Patient and Family Additional record(s) reviewed:: Prior inpatient record and Prior ED visit Lab Data Attestation: I reviewed the patient's lab results. Lab results narrative: CBC unremarkable. White count of 5. H&H 12 and 36. Platelets 207. Electrolytes unremarkable gap 11. BUN 22 creatinine 1. Glucose 103. Troponin less than 6. Orthostatic vital signs were negative. Labs: Laboratory Results - last 24 hr 12/27/24 12:13 WBC 5.6 RBC 4.20 Hgb 12.2 Hct 36.9 L MCV 87.9 MCH 29.0 MCHC 33.1 RDW Std Deviation 42.7 RDW Coeff of Oanh 13.4 Plt Count 207 MPV 10.7 Immature Gran % (Auto) 0.200 Neut % (Auto) 56.7 Lymph % (Auto) 34.6 Andrew % (Auto) 7.1 Eos % (Auto) 0.9 Baso % (Auto) 0.5 Absolute Neuts (auto) 3.2 Absolute Lymphs (auto) 1.94 Nucleated RBC % 0 Sodium 140 Potassium 4.1 Chloride 103 Carbon Dioxide 25.4 Anion Gap 11 BUN 22 H Creatinine 1.05 Estim Creat Clear Calc 65.18 Est GFR (MDRD) Non-Af 61 BUN/Creatinine Ratio 21.3 H Glucose 103 H Calcium 9.4 Troponin T High Sens < 6 Radiography Chest X-Ray - ED: 2 View, Read by ED Physician, Heart, Lungs, Mediastinum, Bony Structures, No Acute Disease and Chronic Changes Diagnostic Testing: Clinical Impression(s) from Imaging Studies Chest X-Ray 12/27/24 12:55 IMPRESSION: NEGATIVE CHEST Reading Location: [facility] Chest x-ray, 2 views, AP and lateral, interpreted by by myself and radiologist shows no acute abnormality. Normal cardiac silhouette. Rhythm Strip Rhythm Strip: Sinus Rhythm Rate: 60 Ectopy: None EKG Initial EKG: Attestation: I personally reviewed and interpreted this EKG as follows: Interpretation: Sinus Rhythm and No Acute Injury Pattern Comments: Sinus rhythm rate of 60 no acute signs of NM or ischemia. Discharge Plan Triage Chief Complaint: Syncope ED Provider: Nima Tee Dx/Rx/DC Orders Prescriptions: No Action metoprolol succinate 25 mg tablet extended release 24 hr 25 mg PO DAILY Patient Comments: TAKES AT BEDTIME levothyroxine 50 mcg capsule 50 mcg PO DAILY tramadol 50 mg tablet 50 mg PO DAILY PRN (Reason: pain) Patient Comments: PT TAKES AT BEDTIME, ROUTINELY lorazepam 0.5 mg tablet 0.5 mg PO DAILY PRN (Reason: anxiety) cholecalciferol (vitamin D3) [Vitamin D3] 25 mcg (1,000 unit) capsule 25 mcg PO DAILY Patient Comments: PT TAKES AT BEDTIME cyanocobalamin (vitamin B-12) [Vitamin B-12] 1,000 mcg tablet 1,000 mcg PO DAILY Patient Comments: PT TAKES AT BEDTIME bupropion HCl 150 mg tablet extended release 24 hr 150 mg PO DAILY Patient Comments: PT TAKES AT BEDTIME meclizine 25 mg tablet 25 mg PO 4X/DAY PRN (Reason: Dizziness) clobetasol 0.05 % ointment 1 applic topical DAILY PRN (Reason: SKIN) fluoxetine 40 mg capsule 40 mg PO DAILY Patient Comments: PT TAKES NEEDED hydroxyzine HCl 25 mg tablet 25 - 50 mg PO Q6H PRN (Reason: itch) Primary Care Provider: Arslan Mccarthy Referrals: Arslan Mccarthy DO [Primary Care Provider] - Print Language: Citizen Of [place]
[2024-12-27 12:45] VITALS: BP 132/58; BP 132/73; BP 141/73; PULSE 64; PULSE 72
--- NOTE | 2024-12-27 12:55 | RAD_ITS ---
PROCEDURE: CHEST PA AND LATERAL 12/27/2024 REASON FOR EXAM: CHEST PAIN TECHNIQUE: Frontal and lateral views of the chest. COMPARISON: Chest radiograph 07/13/2024. FINDINGS: Hardware: None. Heart: The heart size is normal. Mediastinum: The mediastinal contour is stable. Lungs: No focal consolidation, pleural effusion or pneumothorax. Bones: The bones are unremarkable. RAD/Chest PA and Lateral IMPRESSION: NEGATIVE CHEST Reading Location: [id number]
[2024-12-27 13:03] LABS: Absolute Lymphocyte Count 1.94 X10^3/uL (0.83-4.51); Absolute Neutrophil Count 3.2 X10^3/uL (2.0-7.7); Basophil# 0.03 X10^3/uL; Basophil% 0.5 % (0-1); Eosinophil# 0.05 X10^3/uL; Eosinophils% 0.9 % (0-5); Hematocrit 36.9 % (37-47); Hemoglobin 12.2 g/dL (12.0-15.0); Lymphocyte # 1.94 X10^3/ul (0.83-4.51); Lymphocyte % 34.6 % (19-41); Mean Corp Hgb Conc 33.1 g/dL (32-36); Mean Corpuscular Volume 87.9 fL (81-99); Mean Platelet Vol. 10.7 fl (6.2-12.0); Monocyte% 7.1 % (0-10); NRBC Flagged by Analyzer 0 % (0-5); Neutrophil # 3.17 X10^3/uL (2.7-7.7); Neutrophil % 56.7 % (47-70); Platelet Count 207 K/mm3 (150-450); RBC Distribution Width CV 13.4 % (11.6-14.6); RBC Distribution Width SD 42.7 fl (35.1-43.9); White Blood Count 5.6 K/mm3 (4.4-11.0)
[2024-12-27 13:13] LABS: Troponin T High Sensitivity < 6 ng/L (<=14)
[2024-12-27 13:32] LABS: Anion Gap 11 (5-15); BUN 22 mg/dL (4-19); BUN/Creat Ratio 21.3 RATIO (10-20); Calcium,Total 9.4 mg/dL (7.6-11.0); Carbon Dioxide 25.4 mmol/L (21.0-32.0); Chloride 103 mmol/L (98-108); Creatinine, Serum 1.05 mg/dL (0.70-1.20); EST Glomerular Filtration Rate 61 (>60); Estimated Creatinine Clearance 65.18 ml/min (50-250); Glucose 103 mg/dL (70-99); Potassium 4.1 mmol/L (3.3-5.1); Sodium Level 140 mmol/L (133-145)
[2024-12-27 14:09] VITALS: BP 130/75; PULSE 59; RESP 16; O2SAT 97
[2024-12-27 15:41] VITALS: BP 127/64; PULSE 60; RESP 16; TEMP 36.6; O2SAT 97
== END 2024-12-27 15:42 | disposition home or self-care (01) ==
PROVIDERS: Emergency Provider Emergency Medicine; PCP Family Medicine; Visit Provider Emergency Medicine
DX: R55 Syncope and collapse (principal); I10 Essential (primary) hypertension; Z79.899 Other long term (current) drug therapy; Z87.891 Personal history of nicotine dependence
CPT/HCPCS: 71046; 80048; 84484; 85025; 93005; 99285; A4216